=== PATIENT | male | born 1980 | race Caucasian/White ===

== ENCOUNTER 2023-10-09 13:01 | Outpatient (AMB) | payer OTHER, SELFPAY ==
--- NOTE | 2023-10-09 13:27 | MHC.PC.OV ---
Vital Signs 10/09/23 13:32 10/09/23 13:36 Height 5 ft 6 in Weight 276 lb BMI 44.5 BP 148/104 H 148/102 H Blood Pressure Location Rt brachial Rt brachial Position Sitting Sitting Respiration 16 Pulse 84 Pulse Source Pulse Oximeter Temp 98.4 F Temp Source Oral Pulse Oximetry (%) 97 Oxygen Delivery Method Room Air Intake Visit Reasons: Establish Care Intake Note: New patient visit Accompanied by: Spouse Allergies No Known Allergies Allergy (Verified 10/09/23 13:27) Medication List - Last Reconciled 10/09/23 by Linnette Hensley PA-C metformin 500 mg PO DAILY Tobacco use date assessed: 10/09/23 Dental Screening Dental Screen Date: 10/09/23 Did you have a dental visit in the last 12 months?: Yes Did you have a dental problem in the last 6 months where you did not have access to dental care?: No Was dental information given to patient?: Patient has dentist HPI Establish Care HPI Details Patient is a 43-year-old male who presents today for a follow up/to reestablish care. He is transferring from [facility] with wi. He has not been seen in a few months and has a significant past medical history of hypertension, hyperlipidemia, type 2 diabetes, peripheral neuropathy, GERD, fatty liver, BALDO on BiPAP, and headaches. He states that he has not had labs in months. He does not have any records with him today. Endo: He is on metformin 500 mg daily. If he increases the dose he gets diarrhea and bloating. He used to be on Trulicity but due to insurance issues was unable to get this refilled. His A1c today in the office is 7.6. He is overdue for an eye exam and tells me he will schedule this. He was diagnosed with diabetes 2 years ago. Does not check blood sugars. States that he is terrified of needles and does not think he would tolerate checking his glucose daily. His helps him with checking his blood sugars but she states that it takes a lot and he sometimes looks like he is going to faint. He was able to tolerate the Trulicity when he took this because he did not see the needle and his administered it for him. His peripheral neuropathy is stable. He states that it has not all the time that he has the numbness and tingling but it does seem relatively persistent. No infections. CV: Blood pressure today in the office is 148/102. He does not remember what his last cholesterol was but states that it was normal. Denies any chest shortness on breath or palpitations. He states years ago he was an antihypertensive but then stopped when he lost some weight. He has gained back the weight. He is following with weight management at [facility] and plans to proceed with a gastric sleeve. He states that he is follow up arranged this summer. PULM: Follows with Dr. Santo from [facility] sleep medicine for his BALDO. Compliant. [facility], [facility] Medical History (Updated 10/09/23 @ 14:24 by Linnette Hensley PA-C) Peripheral sensory neuropathy due to type 2 diabetes mellitus Needle phobia Uncontrolled type 2 diabetes mellitus with hyperglycemia Fatty liver GERD (gastroesophageal reflux disease) Headache Diabetes mellitus type 2, controlled, without complications Hypercholesteremia HTN (hypertension) Surgical History (Updated 10/09/23 @ 13:46 by Radha Velazco CMA) H/O removal of cyst History of tonsillectomy Family History (Updated 10/09/23 @ 13:53 by Radha Velazco CMA) Mother Afib Hypothyroidism Father Alcoholism Maternal Grandfather Colon cancer Other Substance use Social History (Updated 10/09/23 @ 13:29 by Radha Velazco CMA) Housing: Apartment Patient Tobacco Use Status: Never used Tobacco e-Cigarette/Vaping Use: Never Used Second Hand Smoke Exposure: Yes service: No Current occupational status: employed 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 1. Little interest or pleasure in doing things: not at all 2. Feeling down, depressed, or hopeless: not at all 3. Trouble falling or staying asleep, or sleeping too much: not at all 4. Feeling tired or having little energy: not at all 5. Poor appetite or overeating: not at all 6. Feeling bad about yourself - or that you are a failure or have let yourself or your family down: not at all 7. Trouble concentrating on things, such as reading the newspaper or watching television: not at all 8. Moving or speaking so slowly that other people could have noticed. Or the opposite - being so fidgety or restless that you have been moving around a lot more than usual: not at all 9. Thoughts that you would be better off or of hurting yourself in some way: not at all Total score: 0 Depression Screening Interpretation: Negative Depression Screening Done: Yes 24752 - PHQ-9 Billing: Yes Source: Developed by Drs. Syd Brown, Luh Matta, Swapnil Marsh and colleagues, with an educational ángel from [employer]. Thrive Questionnaire Date Thrive assessed: 10/09/23 I am a: Patient What is your living situation today?: I have a steady place to live Within the past 12 months, did the food you bought not last and you didn't have the money to get more?: Never true Within the past 12 months, did you worry whether your food would run out before you got money to buy more?: Never true Do you have trouble paying for medicines?: No Do you have trouble getting transportation to medical appointments?: No Do you have trouble paying your heating and electricity bill?: No Do you have trouble taking care of your child, family member or friend?: No Do you have trouble with day-to-day activities such as bathing, preparing meals, shopping, managing finances, etc.?: No Are you currently unemployed and looking for a job?: No Are you interested in more education?: No Please select the resources that you would like help with: None Currently or been in a relationship where the following occur: no concerns reported THRIVE Score: 0 AUDIT C Alcohol Use Questionnaire (AUDIT-C) 1. How often do you have a drink containing alcohol?: Never 3. How often do you have six or more drinks on one occasion?: Never Total Score: 0 Score Reviewed/Action Taken: Yes EDDIE-7 AMB Questionnaire EDDIE-7 Date EDDIE - 7 assessed: 10/09/23 Feeling nervous, anxious, or on edge: 0 = Not at all Not being able to stop or control worryin = Not at all Worrying too much about different things: 0 = Not at all Trouble relaxin = Not at all Being so restless that it is hard to sit still: 0 = Not at all Becoming easily annoyed or irritable: 0 = Not at all Feeling afraid as if something awful might happen: 0 = Not at all Total EDDIE-7 score (0-4 normal; 5-9 mild; 10-14 moderate; 15-21 severe): 0 Source: Developed by Drs. Syd Brown, Luh Matta, Swapnil Marsh and colleagues, with an educational ángel from [employer]. EDDIE-7 Assessment Billing EDDIE-7 Assessment Tool: EDDIE-7 Assessment 77186 Physical exam (Primary Care) Vital Signs: Last Vital Signs Temp 98.4 F 10/09/23 13:32 Pulse 84 10/09/23 13:32 Resp 16 10/09/23 13:32 BP 148/102 H 10/09/23 13:36 Pulse Ox 97 10/09/23 13:32 Oxygen Delivery Method Room Air 10/09/23 13:32 BMI result Body Mass Index 44.5 BMI Assessment/Plan discussion: High BMI High, discussed plan: lifestyle, weight reduction, dietary and physical activity Tobacco/Smoking Status: Tobacco use Status Tobacco use date assessed 10/09/23 10/09/23 13:31 Patient Tobacco Use Status Never used Tobacco 10/09/23 13:31 e-Cigarette/Vaping Use Never Used 10/09/23 13:31 Depression Screening Interpretation: Negative Currently or been in a relationship where the following occur: no concerns reported Const Orientation/consciousness: patient oriented x3 HENMT Ears: hearing grossly normal bilaterally Neck Thyroid: Thyroid normal Lymphatic: no lymphadenopathy noted Resp Auscultation: clear to auscultation bilaterally Cardio Rate: regular rate Rhythm: regular rhythm Heart sounds: S1 normal heart sound present and S2 normal heart sound present GI Inspection: Yes normal to inspection Palpation (GI): Soft to palpation and Other GI palpation findings present (nontender, no cva tenderness) Auscultation: normoactive bowel sounds Rectal Exam - Male: Yes deferred Skin General skin exam: no rashes or lesions noted Neuro General: patient oriented x3, gait normal and no focal motor deficits Results AMB Hemoglobin A1c AMB Hemoglobin A1c 7.6 % Last Edit by Radha Velazco CMA on 10/09/23 13:54 Assessment and Plan Assessment & Plan (1) Uncontrolled type 2 diabetes mellitus with hyperglycemia: Code(s): E11.65 - Type 2 diabetes mellitus with hyperglycemia Plan: In office A1c today is 7.6. Discussed with him that this is not at goal. I have referred him to a clinical systems educator. I we will try to get the [place] 3 approved for him. We did discuss that he does have the peripheral neuropathy and needle phobia that may be able to get this approved. I have started him on Ozempic. Discussed risks and benefits and adverse effects such as nausea and vomiting. He will return in a few weeks to have this adjusted. He will let me know if he develops any issues picking up this medication. Labs ordered today including CMP, microalbuminuria, TSH, CBC, B12. (2) Peripheral sensory neuropathy due to type 2 diabetes mellitus: Code(s): E11.42 - Type 2 diabetes mellitus with diabetic polyneuropathy Plan: As above. Discussed the importance of controlling blood sugars. (3) Needle phobia: Code(s): F40.298 - Other specified phobia Plan: See above. (4) HTN (hypertension): Code(s): I10 - Essential (primary) hypertension Qualifiers: Hypertension type: primary hypertension Qualified Code(s): I10 - Essential (primary) hypertension Plan: We will start on lisinopril. Discussed risks and benefits and adverse effects such as of angioedema, hyperkalemia. Discussed that he may develop a cough and to let me know. We will check labs a couple of weeks after starting this. He will return in 3-4 weeks to have his blood pressure rechecked. At that time we will also address diabetes. (5) Hypercholesteremia: Code(s): E78.00 - Pure hypercholesterolemia, unspecified Plan: Lipids ordered today. (6) Fatty liver: Code(s): K76.0 - Fatty (change of) liver, not elsewhere classified Plan: We will get records from [facility]. Does not recall the last time had ultrasound. LFTs ordered today. Plan Patient understands and agrees with the plan. Orders: Orders AMB Hemoglobin A1c Today E11.65 - Type 2 diabetes mellitus with hyperglycemia Lipid Panel Today E11.65 - Type 2 diabetes mellitus with hyperglycemia, E78.00 - Pure hypercholesterolemia, unspecified, I10 - Essential (primary) hypertension, K76.0 - Fatty (change of) liver, not elsewhere classified Comprehensive [place]. Panel Fast Today E11.65 - Type 2 diabetes mellitus with hyperglycemia, E78.00 - Pure hypercholesterolemia, unspecified, I10 - Essential (primary) hypertension, K76.0 - Fatty (change of) liver, not elsewhere classified Complete Blood Count Auto Diff Today E11.65 - Type 2 diabetes mellitus with hyperglycemia, E78.00 - Pure hypercholesterolemia, unspecified, I10 - Essential (primary) hypertension, K76.0 - Fatty (change of) liver, not elsewhere classified TSH reflex Free T4 Today E11.65 - Type 2 diabetes mellitus with hyperglycemia, E78.00 - Pure hypercholesterolemia, unspecified, I10 - Essential (primary) hypertension, K76.0 - Fatty (change of) liver, not elsewhere classified Vitamin B12 and Folate Today E11.65 - Type 2 diabetes mellitus with hyperglycemia, E78.00 - Pure hypercholesterolemia, unspecified, I10 - Essential (primary) hypertension, K76.0 - Fatty (change of) liver, not elsewhere classified Referrals Diabetes Education Referral E11.65 - Type 2 diabetes mellitus with hyperglycemia, E78.00 - Pure hypercholesterolemia, unspecified, I10 - Essential (primary) hypertension, K76.0 - Fatty (change of) liver, not elsewhere classified Medications: New semaglutide (Ozempic) for 4 weeks 0.25 mg (0.368 mL) subcut QWEEK 3 mL 2RF lisinopril 10 mg PO DAILY 90 tabs 1RF blood-glucose sensor (FreeStyle Kei 3 Sensor device) use daily As directed and replace q 14 days 1 ea 11RF E11.65 - Type 2 diabetes mellitus with hyperglycemia, F40.298 - Other specified phobia Coding Level of Care Code Est Pt Level 4 (93380) Complex EM visit Add On G2211 Diagnoses Uncontrolled type 2 diabetes mellitus with hyperglycemia E11.65 Peripheral sensory neuropathy due to type 2 diabetes mellitus E11.42 Needle phobia F40.298 Primary hypertension I10 Hypertension type: primary hypertension Hypercholesteremia E78.00 Fatty liver K76.0 Additional Codes EDDIE-7 Assessment Billing - EDDIE-7 Assessment Tool: EDDIE-7 Assessment 36211 ([id number])
[2023-10-09 13:32] VITALS: BP 148/104; PULSE 84; RESP 16; TEMP 36.9; O2SAT 97; BMI 44.5
[2023-10-09 13:36] VITALS: BP 148/102
== END 2023-10-09 14:18 | disposition home or self-care (01) ==
PROVIDERS: Visit Provider Physician Assistant
DX: E11.65 Type 2 diabetes mellitus with hyperglycemia (principal); E11.42 Type 2 diabetes mellitus with diabetic polyneuropathy; F40.298 Other specified phobia; I10 Essential (primary) hypertension; E78.00 Pure hypercholesterolemia, unspecified; K76.0 Fatty (change of) liver, not elsewhere classified
CPT/HCPCS: 83036; 99214; G2211

== ENCOUNTER 2023-10-24 14:08 | Outpatient (AMB) | payer OTHER, SELFPAY ==
--- NOTE | 2023-10-24 14:30 | A.OFFVIS_ITS ---
Intake Intake Visit Reasons: T2DM/CONFIRMED Motor Analyst Required: No Accompanied by: Spouse Allergies No Known Allergies Allergy (Verified 10/09/23 13:27) HPI Comprehensive Diabetes Asmnt Most Recent Diabetes Results: No Data to Display [facility] Medical History (Updated 10/09/23 @ 14:24 by Linnette Hensley PA-C) Peripheral sensory neuropathy due to type 2 diabetes mellitus Needle phobia Uncontrolled type 2 diabetes mellitus with hyperglycemia Fatty liver GERD (gastroesophageal reflux disease) Headache Diabetes mellitus type 2, controlled, without complications Hypercholesteremia HTN (hypertension) Surgical History (Updated 10/09/23 @ 13:46 by Radha Velazco CMA) H/O removal of cyst History of tonsillectomy Family History (Updated 10/09/23 @ 13:53 by Radha Velazco CMA) Mother Afib Hypothyroidism Father Alcoholism Maternal Grandfather Colon cancer Other Substance use Social History (Updated 10/09/23 @ 13:29 by Radha Velazco CMA) Housing: Apartment Patient Tobacco Use Status: Never used Tobacco e-Cigarette/Vaping Use: Never Used Second Hand Smoke Exposure: Yes service: No Current occupational status: employed 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 The patient met all learning objectives and was able to verbalize understanding and provide teach back of education topics discussed . The patient was provided with the opportunity to ask questions and all questions were answered. Patient Assessment Assess patient education level/literacy/barriers, patient could identify foods from carbohydrate list he currently eats. Patient reports being needle phobic so he does not test his glucose levels. Patient questions/concerns, patient diagnosed with type 2 diabetes approximately a year ago, last A1c in September 2023 7.6%. Patient is currently on Ozempic 0.25 mg weekly Metformin 500 mg daily, reports can not tolerate higher doses of metformin due to GI side effects What is Diabetes? Pathophysiology How the body produces and uses insulin Identify type of DM Risk factors Signs of Diabetes Brief overview of Diabetes Management Monitoring blood sugar Following a meal plan Regular exercise Maintaining a healthy weight Taking medication as needed Members of the care team (PCP, RN, MA, RD, CDE, organic preparation analyst) Blood glucose monitoring When/how often to test Target blood sugar ranges Patient is currently not checking blood sugars Patient does have current prescription for Kei 3, patient allowed Diabetes Education nurse to insert Kei 3 sensor in his arm at today's visit. Set up Kei 3 keenan on patient's cellphone Introduction to Nutrition Importance of healthy diet in managing DM Diet is personalized to individual preference Review patient?s regular diet/food preferences Who prepares meals/does food shopping/ Dining out?/ Barriers? How diet effects glucose Eating 3 balanced meals a day with small, healthy snacks between meals Review food groups Carbohydrates: What is a carbohydrate/Which food/food groups are considered carbohydrates Effect of carbohydrates on blood glucose Portion sizes Reading food labels Basic carb counting (if applicable per nursing assessment) Plate method Meal planning Recommendations: Follow plate method, consistent carbs and read nutritional labels. Smart Goal: Patient will identify foods in his diet that contain carbohydrates by his next visit Educational Materials: The patient was provided with the following written educational materials: Planning Healthy Meals Handout Patient Response to instructions: Comprehension of Instructions: Fair Readiness to make changes: Contemplation How confident they feel about making changes: Positive Portions of this note were created using voice recognition software, please excuse any words or phrases that may have been misinterpreted. Patient Instructions: Include regular daily activity. ADA recommends 30 minutes of exercise 5 days a week. Weight loss talk to PCP or Forming Mill Operator before starting new plan. Test blood sugar as directed; Fasting and 2hpp largest meal. Watch trends in results. Utilize results and to assess how food, physical activity and medications affect blood sugar results. Bring glucometer or CGM to next visit. Be knowledgeable about diabetes medication, its action, side effects, efficacy, toxicity, prescribed dosage, appropriate timing and frequency of administration, effect of missed and delayed doses and instructions for storage, travel and safety. Problem solving techniques to monitor hypo/hyperglycemia episodes and treatments. Reduce risk reduction behaviors, smoking cessation, regular eye, foot and dental examinations. Coding Level of Care Code Est Pt Level 1 (25096) Diagnoses Peripheral sensory neuropathy due to type 2 diabetes mellitus E11.42
== END 2023-10-24 15:11 | disposition home or self-care (01) ==
PROVIDERS: Visit Provider Registered Nurse Diabetes Educator
DX: E11.42 Type 2 diabetes mellitus with diabetic polyneuropathy (principal)

== ENCOUNTER → 2023-10-24 14:08 | Outpatient (BNVA) | payer OTHER, SELFPAY | PROVIDERS: Visit Provider Registered Nurse Diabetes Educator | DX: E11.42 Type 2 diabetes mellitus with diabetic polyneuropathy (principal) | CPT/HCPCS: 99211 ==

== ENCOUNTER 2023-11-10 07:51 | Outpatient (REF) | payer OTHER, SELFPAY ==
[2023-11-10 08:02] LABS: MANUAL DIFF FLAG NO
[2023-11-10 08:23] LABS: Basophils Absolute Auto 0.1 X10*3/uL (0.0-0.2); Basophils Percent Auto 0.5 % (0-2); Eosinophils Absolute Auto 0.2 X10*3/uL (0.0-0.4); Eosinophils Percent Auto 1.7 % (0-4); Hematocrit 49.7 % (42.0-52.0); Hemoglobin 16.4 g/dl (14.0-18.0); Imm Gran Abs Auto 0.03 X10*3/uL (0.00-0.03); Imm Gran Pct Auto 0.3 % (0.0-0.4); Lymphocytes Absolute Auto 3.2 X10*3/uL (1.2-4.9); Lymphocytes Percent Auto 34.6 % (20-40); Mean Corpuscular Hemoglobin 28.3 pg (27.0-33.0); Mean Corpuscular Volume 85.7 fL (80.0-98.0); Mean Platelet Volume 9.5 fL (9.4-12.4); Monocytes Absolute Auto 0.8 X10*3/uL (0.1-1.2); Monocytes Percent Auto 8.7 % (2-11); Neutrophils Percent Auto 54.2 % (45-73); Platelet Count 252 X10*3/uL (160-400); White Blood Count 9.2 X10*3/uL (4.8-10.8)
[2023-11-10 08:50] LABS: Microalbumin Urine < 5.0 mg/L
[2023-11-10 08:54] LABS: Alanine Aminotransferase 61 U/L (0-40); Albumin Level 4.1 g/dL (3.5-5.0); Alkaline Phosphatase 125 U/L (39-117); Anion Gap 12 (12-20); Aspartate Amino Transferase 40 U/L (5-37); Bilirubin Total 0.5 mg/dL (0.0-1.0); Blood Urea Nitrogen 11 mg/dL (9-16); Calcium 9.3 mg/dL (8.4-10.2); Carbon Dioxide 28 mmol/L (22-29); Chloride 105 mmol/L (96-108); Cholesterol 195 mg/dL (<200); Estimated Glomerular Filt Rate > 60; Glucose Fasting 118 mg/dL (60-99); HDL Cholesterol 37 mg/dL (>40); LDL Cholesterol Calculated 129 mg/dL (<100); Potassium 4.5 mmol/L (3.3-5.1); Sodium 140 mmol/L (135-145); Total Protein 7.5 g/dL (6.5-8.0); Triglycerides 148 mg/dL (<150)
[2023-11-10 09:10] LABS: TSH reflex Free T4 0.44 uIU/mL (0.32-4.0)
[2023-11-10 09:20] LABS: Vitamin B12 463 pg/mL (200-900)
== END 2023-11-10 07:52 | disposition home or self-care (01) ==
LOC: HO.LAB 07:51
PROVIDERS: PCP Physician Assistant; Visit Provider Physician Assistant
DX: E11.65 Type 2 diabetes mellitus with hyperglycemia (principal); I10 Essential (primary) hypertension; E78.00 Pure hypercholesterolemia, unspecified; K76.0 Fatty (change of) liver, not elsewhere classified
CPT/HCPCS: 36415; 80053; 80061; 82570; 82607; 82746; 84443; 85025

== ENCOUNTER 2023-11-30 08:57 | Outpatient (REF) | payer OTHER, SELFPAY ==
--- NOTE | ~2023-11-30 | US_ITS ---
EXAMINATION: US ABDOMEN COMPLETE CLINICAL INFORMATION: Steatosis of the liver. Elevated liver function tests. COMPARISON: None available. TECHNIQUE: Real-time imaging of the abdominal viscera. Severely limited study secondary to body habitus. Limited visualization due to bowel gas. FINDINGS: PANCREAS: Poorly visualized. ABDOMINAL AORTA: Poorly visualized. INFERIOR VENA CAVA: Limited visualization LIVER: Increased hepatic parenchymal heterogeneity and echogenicity could be associated with hepatocellular disease/hepatic steatosis and severely limits visualization. Hypoechoic areas within the right hepatic lobe adjacent to the gallbladder are difficult to characterize due to severely limited visualization, but may possibly represent areas of focal sparing within a fatty liver. GALLBLADDER: No gallstones. No gallbladder wall thickening. COMMON BILE DUCT: Normal in caliber measuring 0.4 cm in diameter. RIGHT KIDNEY: Tiny echogenic foci throughout the kidney may represent tiny nonobstructive calculi, vascular calcifications or artifact. No hydronephrosis. Limited visualization. The kidney measures 12.3 cm in maximum dimension. LEFT KIDNEY: Left renal 0.7 cm mid pole calculus. No hydronephrosis. Tiny echogenic foci throughout the kidney may represent tiny nonobstructive calculi, vascular calcifications or artifact. Limited visualization. The kidney measures 12.5 cm in maximum dimension. SPLEEN: Normal. The spleen measures 11.1 cm in maximum dimension. FREE FLUID: None. US/US abdomen complete IMPRESSION: 1. Increased hepatic parenchymal heterogeneity and echogenicity could be associated with hepatocellular disease/hepatic steatosis and severely limits visualization. Hypoechoic areas within the right hepatic lobe adjacent to the gallbladder are difficult to characterize due to severely limited visualization, but may possibly represent areas of focal sparing within a fatty liver. Correlation with liver function tests and clinical exam recommended to determine further management. 2. Left renal 0.7 cm mid pole calculus. No hydronephrosis. Tiny echogenic foci throughout the bilateral kidneys may represent tiny nonobstructive calculi, vascular calcifications or artifact. 3. Severely limited visualization due to bowel gas and body habitus.
== END 2023-11-30 08:58 | disposition home or self-care (01) ==
LOC: HO.US 08:57
PROVIDERS: PCP Physician Assistant; Visit Provider Physician Assistant
DX: K76.0 Fatty (change of) liver, not elsewhere classified (principal); R79.89 Other specified abnormal findings of blood chemistry
CPT/HCPCS: 76700

== ENCOUNTER 2024-04-03 09:06 | Outpatient (AMB) | payer OTHER, SELFPAY ==
--- NOTE | 2024-04-03 09:15 | MHC.PC.OV ---
Vital Signs 04/03/24 09:19 Height 5 ft 6 in Weight 248 lb BMI 40.0 BP 108/76 Blood Pressure Location Rt brachial Position Sitting Pulse 109 H Pulse Source Pulse Oximeter Pulse Oximetry (%) 98 Oxygen Delivery Method Room Air Intake Visit Reasons: Sleeve Surgery Follow Up Intake Note: Follow up after gastric sleeve surgery. Program Evaluation Consultant Required: No Allergies No Known Allergies Allergy (Verified 04/03/24 09:15) Medication List - Last Reconciled 04/03/24 by Linnette Hensley PA-C acetaminophen 500 mg PO Q6H PRN blood-glucose sensor (FreeStyle Kei 3 Sensor device) use daily As directed and replace q 14 days lisinopril 10 mg PO DAILY multivitamin 1 tab PO DAILY pantoprazole 40 mg PO DAILY semaglutide (Ozempic) 0.5 mg (0.736 mL) subcut QWEEK simethicone (Gas Relief (simethicone)) 8-0 ursodiol 600 mg PO DAILY Tobacco use date assessed: 10/09/23 Dental Screening Dental Screen Date: 10/09/23 HPI Sleeve Surgery Follow Up HPI Details pernell is a 43-year-old male who presents today for a follow up. He recently had gastric sleeve surgery. He has not been seen in a few months and has a significant past medical history of hypertension, hyperlipidemia, type 2 diabetes, peripheral neuropathy, GERD, fatty liver, BALDO on BiPAP, and headaches. General: Currently down 30 lb since his gastric sleeve 2 weeks ago. Endo: His A1c today in the office is 6.2. Currently off of metformin as he had GI upset. His surgeon told him to hold the Ozempic at this point until he is re-evaluated. He will be re-evaluated next week. GI: He has fatty liver. Does not follow with GI. He is working on lifestyle modifications. Uro: Was supposed to follow with urology for stones but never did because he owed money and they wouldn't let him make an appointment. He would like a referral somewhere else. CV: Blood pressure today in the office is 108/76. PULM: Follows with Dr. Santo from [facility] sleep medicine for his BALDO. Compliant. [facility] Medical History (Updated 04/03/24 @ 09:51 by Linnette Hensley PA-C) Left renal stone Peripheral sensory neuropathy due to type 2 diabetes mellitus Needle phobia Uncontrolled type 2 diabetes mellitus with hyperglycemia Fatty liver GERD (gastroesophageal reflux disease) Headache Diabetes mellitus type 2, controlled, without complications Hypercholesteremia HTN (hypertension) Surgical History (Updated 10/09/23 @ 13:46 by Radha Velazco CMA) H/O removal of cyst History of tonsillectomy Family History (Updated 10/09/23 @ 13:53 by Radha Velazco CMA) Mother Afib Hypothyroidism Father Alcoholism Maternal Grandfather Colon cancer Other Substance use Social History (Updated 10/09/23 @ 13:29 by Radha Velazco CMA) Housing: Apartment Patient Tobacco Use Status: Never used Tobacco e-Cigarette/Vaping Use: Never Used Second Hand Smoke Exposure: Yes service: No Current occupational status: employed 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 1. Little interest or pleasure in doing things: not at all 2. Feeling down, depressed, or hopeless: not at all 3. Trouble falling or staying asleep, or sleeping too much: several days 4. Feeling tired or having little energy: several days 5. Poor appetite or overeating: not at all 6. Feeling bad about yourself - or that you are a failure or have let yourself or your family down: not at all 7. Trouble concentrating on things, such as reading the newspaper or watching television: several days 8. Moving or speaking so slowly that other people could have noticed. Or the opposite - being so fidgety or restless that you have been moving around a lot more than usual: not at all 9. Thoughts that you would be better off or of hurting yourself in some way: not at all Total score: 3 Source: Developed by Drs. Syd Brown, Luh Matta, Swapnil Marsh and colleagues, with an educational ángel from [employer]. Thrive Questionnaire Date Thrive assessed: 10/09/23 I am a: Patient What is your living situation today?: I have a steady place to live Within the past 12 months, did the food you bought not last and you didn't have the money to get more?: Never true Within the past 12 months, did you worry whether your food would run out before you got money to buy more?: Never true Do you have trouble paying for medicines?: No Do you have trouble getting transportation to medical appointments?: No Do you have trouble paying your heating and electricity bill?: No Do you have trouble taking care of your child, family member or friend?: No Do you have trouble with day-to-day activities such as bathing, preparing meals, shopping, managing finances, etc.?: No Are you currently unemployed and looking for a job?: No Are you interested in more education?: No Please select the resources that you would like help with: None Currently or been in a relationship where the following occur: No concerns reported THRIVE Score: 0 AUDIT C Alcohol Use Questionnaire (AUDIT-C) 1. How often do you have a drink containing alcohol?: Never Total Score: 0 EDDIE-7 AMB Questionnaire EDDIE-7 Date EDDIE - 7 assessed: 10/09/23 Feeling nervous, anxious, or on edge: 0 = Not at all Not being able to stop or control worryin = Not at all Worrying too much about different things: 0 = Not at all Trouble relaxin = Not at all Being so restless that it is hard to sit still: 0 = Not at all Becoming easily annoyed or irritable: 1 = Several days Feeling afraid as if something awful might happen: 0 = Not at all Total EDDIE-7 score (0-4 normal; 5-9 mild; 10-14 moderate; 15-21 severe): 1 Source: Developed by Drs. Syd Brown, Luh Matta, Swapnil Marsh and colleagues, with an educational ángel from [employer]. Physical exam (Primary Care) Vital Signs: Last Vital Signs Pulse 109 H 04/03/24 09:19 BP 108/76 04/03/24 09:19 Pulse Ox 98 04/03/24 09:19 Oxygen Delivery Method Room Air 04/03/24 09:19 BMI result Body Mass Index 40.0 Tobacco/Smoking Status: Tobacco use Status Tobacco use date assessed 10/09/23 04/03/24 09:21 Patient Tobacco Use Status Never used Tobacco 04/03/24 09:21 e-Cigarette/Vaping Use Never Used 04/03/24 09:21 PHQ-9: PHQ-9 Score PHQ-9: Total score 3 04/03/24 09:36 Thrive Assessment: Date of Thrive Assessment Date Thrive assessed 10/09/23 04/03/24 09:21 Currently or been in a relationship where the following occur: No concerns reported Const Orientation/consciousness: patient oriented x3 HENMT Ears: hearing grossly normal bilaterally Neck Thyroid: Thyroid normal Lymphatic: no lymphadenopathy noted Resp Auscultation: clear to auscultation bilaterally Cardio Rate: regular rate Rhythm: regular rhythm Heart sounds: S1 normal heart sound present and S2 normal heart sound present GI Inspection: Yes normal to inspection Palpation (GI): Soft to palpation and Other GI palpation findings present (nontender, no cva tenderness) Auscultation: normoactive bowel sounds Rectal Exam - Male: Yes deferred Neuro General: patient oriented x3, gait normal and no focal motor deficits Coding Level of Care Code Est Pt Level 4 (22572) Complex EM visit Add On G2211 Diagnoses Left renal stone N20.0 Primary hypertension I10 Hypertension type: primary hypertension Hypercholesteremia E78.00 Fatty liver K76.0 Controlled type 2 diabetes mellitus E11.9 Assessment & Plan Assessment & Plan (1) Left renal stone: Code(s): N20.0 - Calculus of kidney Category: Medical Plan: referral to urology (2) HTN (hypertension): Code(s): I10 - Essential (primary) hypertension Category: Medical Qualifiers: Hypertension type: primary hypertension Qualified Code(s): I10 - Essential (primary) hypertension Plan: wnl continue current plan (3) Hypercholesteremia: Code(s): E78.00 - Pure hypercholesterolemia, unspecified Category: Medical Plan: lipids and lfts ordered (4) Fatty liver: Code(s): K76.0 - Fatty (change of) liver, not elsewhere classified Category: Medical Plan: as above (5) Controlled type 2 diabetes mellitus: Code(s): E11.9 - Type 2 diabetes mellitus without complications Category: Medical Plan: continue lifestyle modifications Orders: Orders TSH reflex Free T4 Today E11.65 - Type 2 diabetes mellitus with hyperglycemia, E11.9 - Type 2 diabetes mellitus without complications, E78.00 - Pure hypercholesterolemia, unspecified, I10 - Essential (primary) hypertension, K76.0 - Fatty (change of) liver, not elsewhere classified Microalbumin, Random (w Creat) Today E11.65 - Type 2 diabetes mellitus with hyperglycemia, E11.9 - Type 2 diabetes mellitus without complications, E78.00 - Pure hypercholesterolemia, unspecified, I10 - Essential (primary) hypertension, K76.0 - Fatty (change of) liver, not elsewhere classified AMB Hemoglobin A1c Today E11.42 - Type 2 diabetes mellitus with diabetic polyneuropathy Complete Blood Count Auto Diff Today E11.65 - Type 2 diabetes mellitus with hyperglycemia, E11.9 - Type 2 diabetes mellitus without complications, E78.00 - Pure hypercholesterolemia, unspecified, I10 - Essential (primary) hypertension, K76.0 - Fatty (change of) liver, not elsewhere classified Comprehensive Met. Panel Today E11.65 - Type 2 diabetes mellitus with hyperglycemia, E11.9 - Type 2 diabetes mellitus without complications, E78.00 - Pure hypercholesterolemia, unspecified, I10 - Essential (primary) hypertension, K76.0 - Fatty (change of) liver, not elsewhere classified Lipid Panel Today E11.65 - Type 2 diabetes mellitus with hyperglycemia, E11.9 - Type 2 diabetes mellitus without complications, E78.00 - Pure hypercholesterolemia, unspecified, I10 - Essential (primary) hypertension, K76.0 - Fatty (change of) liver, not elsewhere classified B Type Natriuretic Peptide Today E11.9 - Type 2 diabetes mellitus without complications, E78.00 - Pure hypercholesterolemia, unspecified, I10 - Essential (primary) hypertension Referrals Urology Referral N20.0 - Calculus of kidney
[2024-04-03 09:19] VITALS: BP 108/76; PULSE 109; O2SAT 98; BMI 40.0
== END 2024-04-03 10:04 | disposition home or self-care (01) ==
LOC: HO.HMCFM 09:07
PROVIDERS: PCP Physician Assistant; Visit Provider Physician Assistant
DX: E11.9 Type 2 diabetes mellitus without complications (principal); N20.0 Calculus of kidney; I10 Essential (primary) hypertension; E78.00 Pure hypercholesterolemia, unspecified; K76.0 Fatty (change of) liver, not elsewhere classified

== ENCOUNTER 2024-06-04 14:25 | Outpatient (AMB) | payer OTHER, SELFPAY ==
--- NOTE | 2024-06-04 14:38 | MHC.OFFVIS ---
Intake Visit Reasons: kidney stones Intake Note: New Patient presents for initial visit for kidney stones Urology Medications: none Blood Thinner: none PVR: 19ml's Sweetbread Trimmer Required: No Accompanied by: Self / Same As Patient Allergies No Known Allergies Allergy (Verified 06/04/24 15:24) Medication List - Last Reconciled 06/04/24 by NELY Raman blood-glucose sensor (FreeStyle Kei 3 Sensor device) use daily As directed and replace q 14 days lisinopril 10 mg PO DAILY multivitamin 1 tab PO DAILY pantoprazole 40 mg PO DAILY semaglutide (Ozempic) 0.5 mg (0.736 mL) subcut QWEEK simethicone (Gas Relief (simethicone)) 8-0 ursodiol 600 mg PO DAILY HPI Comments Details: Kimo is a very pleasant 44-year-old male patient of Dr. Hensley who was accompanied by his significant other at today's office visit. He has a past medical history of nephrolithiasis, type 2 diabetes with peripheral neuropathy, needle phobia, GERD, fatty liver, headaches, hypercholesteremia, and hypertension. He presents to the office today as a new patient for nephrolithiasis. In discussion with the patient today he reports a longstanding history of nephrolithiasis in the past however never requiring surgical intervention. He reports recently having gastric sleeve surgery and believes shortly after he passed a kidney stone. In review of patient's chart it appears abdominal ultrasound 12/18 bilateral kidneys with no hydronephrosis. Right kidney tiny nonobstructive calculi noted. Left kidney with 7 mm mid pole calculus and tiny echogenic foci throughout the kidney that can represent nonobstructive calculi. He does discuss feeling after gastric sleeve procedure he feels his bladder is different. He reports prior to surgical procedure he felt when he needed to use the bathroom. He reports feeling previously he felt full upon wakening and had to use the bathroom to void almost immediately and feels this is different now. In office urinalysis results reviewed with the patient today. PVR 19 mL. We discussed obtaining retroperitoneal ultrasound for further assessment evaluation. He otherwise denies incontinence, nocturia, hematuria, dysuria, foul smelling urine, changes to urinary stream, flank pain, fever, and or chills. He is happy with his current voiding parameters. 10/18 A1c 7.6 PFSH Medical History Left renal stone Peripheral sensory neuropathy due to type 2 diabetes mellitus Needle phobia Uncontrolled type 2 diabetes mellitus with hyperglycemia Fatty liver GERD (gastroesophageal reflux disease) Headache Diabetes mellitus type 2, controlled, without complications Hypercholesteremia HTN (hypertension) Surgical History H/O removal of cyst History of tonsillectomy Family History Mother Afib Hypothyroidism Father Alcoholism Maternal Grandfather Colon cancer Other Substance use Social History Housing: Apartment Patient Tobacco Use Status: Never used Tobacco e-Cigarette/Vaping Use: Never Used Second Hand Smoke Exposure: Yes service: No Current occupational status: employed 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 Current occupational exposures/hazards: No Cognitive needs: No Hearing needs: No Vision needs: No Review of Systems Const All systems reviewed & are unremarkable except as noted in HPI and below Physical Exam Const General: cooperative, healthy appearing, comfortable, no acute distress, well developed, alert and awake Nutritional Appearance: overweight Orientation/consciousness: patient oriented x3 Limitations: no limitations HEENT Head: Yes normal to inspection, Yes normocephalic and Yes atraumatic Ears: hearing grossly normal bilaterally Eyes General: appearance normal, both eyes and all related structures Neck Neck: Yes normal visual inspection and Yes trachea midline Chest Chest palpation & inspection: normal inspection of the chest Resp Effort & Inspection: normal respiratory effort and able to speak in complete sentences Cardio Rate: regular rate GI Inspection: Yes normal to inspection General: Yes no CVA tenderness Back/Spine/Pelvis Back: no CVA tenderness Skin General skin exam: no rashes or lesions noted Neuro General: patient oriented x3 Extrem General: Yes normal to inspection Psych Appearance: grossly normal and well kempt Mental Status: mental status grossly normal Speech and movement: Normal speech and movement present and Clear speech present Affect: normal affect Attitude: cooperative Thought process: Normal thought process present Thought content: Normal thought content present Insight: Fair insight present (Psych) Judgement: Fair judgement present (Psych) Office Procedures Post Void Residual Post Residual Void Post Void Residual (PVR): 19 [id number] Void Residual by ultrasound Results AMB Urinalysis, Automated UA Leukoctes 15 Torrie/uL Last Edit by Sokratiolga Marte on 06/04/24 15:03 UA Nitrite Last Edit by Sokratiolga Marte on 06/04/24 15:03 UA Urobilinogen 1 mg/dL Last Edit by Sokratie Rosanna on 06/04/24 15:03 UA Protein 30 mg/dL Last Edit by Sokratie SageFirevaughn on 06/04/24 15:03 UA pH 6.0 Last Edit by Sokratie SageFirevaughn on 06/04/24 15:03 UA Blood 0 Saul/uL Last Edit by SocialDeckvaughn on 06/04/24 15:03 UA Specific Montgomery 1.025 Last Edit by SocialDeckvaughn on 06/04/24 15:03 UA Ketone Last Edit by SocialDeckvaughn on 06/04/24 15:03 UA Bilirubin 1 mg/dL Last Edit by SocialDeckvaughn on 06/04/24 15:03 UA Glucose 0 mg/dL Last Edit by SocialDeckvaughn on 06/04/24 15:03 Results Reviewed Results Reviewed: Laboratory Last Values Urine pH (Auto) 6.0 06/04/24 15:02 Specific Montgomery (Auto) 1.025 06/04/24 15:02 Urine Protein (Auto) 30 mg/dL 06/04/24 15:02 Glucose (UA)(Auto) 0 mg/dL 06/04/24 15:02 Urine Blood (Auto) 0 Saul/uL 06/04/24 15:02 Urine Bilirubin (Auto) 1 mg/dL 06/04/24 15:02 Urine Urobilinogen (Auto) 1 mg/dL 06/04/24 15:02 Leukocyte Esterase (Auto) 15 Torrie/uL 06/04/24 15:02 Date of Service: 11/30/23 Procedure(s): US abdomen complete EXAMINATION: US ABDOMEN COMPLETE FINDINGS: PANCREAS: Poorly visualized. ABDOMINAL AORTA: Poorly visualized. INFERIOR VENA CAVA: Limited visualization LIVER: Increased hepatic parenchymal heterogeneity and echogenicity could be associated with hepatocellular disease/hepatic steatosis and severely limits visualization. Hypoechoic areas within the right hepatic lobe adjacent to the gallbladder are difficult to characterize due to severely limited visualization, but may possibly represent areas of focal sparing within a fatty liver. GALLBLADDER: No gallstones. No gallbladder wall thickening. COMMON BILE DUCT: Normal in caliber measuring 0.4 cm in diameter. RIGHT KIDNEY: Tiny echogenic foci throughout the kidney may represent tiny nonobstructive calculi, vascular calcifications or artifact. No hydronephrosis. Limited visualization. The kidney measures 12.3 cm in maximum dimension. LEFT KIDNEY: Left renal 0.7 cm mid pole calculus. No hydronephrosis. Tiny echogenic foci throughout the kidney may represent tiny nonobstructive calculi, vascular calcifications or artifact. Limited visualization. The kidney measures 12.5 cm in maximum dimension. SPLEEN: Normal. The spleen measures 11.1 cm in maximum dimension. FREE FLUID: None. IMPRESSION: 1. Increased hepatic parenchymal heterogeneity and echogenicity could be associated with hepatocellular disease/hepatic steatosis and severely limits visualization. Hypoechoic areas within the right hepatic lobe adjacent to the gallbladder are difficult to characterize due to severely limited visualization, but may possibly represent areas of focal sparing within a fatty liver. Correlation with liver function tests and clinical exam recommended to determine further management. 2. Left renal 0.7 cm mid pole calculus. No hydronephrosis. Tiny echogenic foci throughout the bilateral kidneys may represent tiny nonobstructive calculi, vascular calcifications or artifact. 3. Severely limited visualization due to bowel gas and body habitus. Assessment & Plan Assessment & Plan (1) Nephrolithiasis: Code(s): N20.0 - Calculus of kidney Category: Medical Plan In office urinalysis results reviewed with the patient today; as noted above. PVR 19 mL. Will obtain retroperitoneal ultrasound for further assessment evaluation. We discussed importance of adequate hydration relation to nephrolithiasis as well as overall health and well-being. We discussed importance of management and diabetes for improvement in overall health and well-being. Discussed adding 1 oz of lemon juice to water daily. We discussed near future metabolic workup with [facility]. Follow-up in 1-3 months with imaging to be completed prior; or sooner with any issues, concerns, and or questions. Orders: Orders AMB Urinalysis Automated Today Z13.9 - Encounter for screening, unspecified AMB Post Void Residual by ultrasound Today Z13.9 - Encounter for screening, unspecified US retroperitoneal comp Today N20.0 - Calculus of kidney Patient Instructions: The patient had an opportunity to ask questions regarding the treatment plan. All questions were answered. Physical exam, labs, and imaging were discussed and reviewed in detail. As well as risks, benefits, and discussion of treatment choices. No major barriers to understanding were identified. The patient expressed understanding and agreement with the above treatment plan. The patient was made aware they should contact our office by phone for worsening of their current condition, the appearance of new symptoms, or with any questions or concerns. Compliance is encouraged with any medications and follow up testing that is ordered. It is a privilege to be allowed the opportunity to participate in? your urological care.? Again, if you have any questions or concerns If you have any questions or concerns please do not hesitate to contact me. The office is [phone]. This note is constructed using voice recognition software. While every effort has been made to ensure accuracy leak hunter errors may have been included. Yours sincerely, LUDWIG Raman-JACINTO Coding Level of Care Code New Pt Level 3 (72889) Diagnoses Nephrolithiasis N20.0 CPT Codes Post Residual Void - PVR CPT Code: 67907-[id number] Void Residual by ultrasound ([id number])
== END 2024-06-04 15:15 | disposition home or self-care (01) ==
PROVIDERS: PCP Physician Assistant; Visit Provider Nurse Practitioner Family
DX: N20.0 Calculus of kidney (principal); Z13.9 Encounter for screening, unspecified
CPT/HCPCS: 99203

== ENCOUNTER → 2024-06-04 14:25 | Outpatient (BNVA) | payer OTHER, SELFPAY | PROVIDERS: PCP Physician Assistant; Visit Provider Nurse Practitioner Family | DX: N20.0 Calculus of kidney (principal) | CPT/HCPCS: 51798; 81003 ==

== ENCOUNTER 2024-07-15 07:49 | Outpatient (REF) | payer OTHER, SELFPAY ==
--- OUTSIDE RECORDS SUMMARY | 2024-07-15 07:51 | XMS_ITS | Clinical Summary ---
Author Organization 175 [facility] Address [address] [place] [address] Phone Care Team Providers Care Stock Hanger Name Role Phone Linnette Hensley Primary Care Provider [phone] Allergies No known active allergies Medications cyclobenzaprine (FLEXERIL) 10 mg tablet Take 1 Tablet by mouth daily. 3 Active gabapentin (NEURONTIN) 300 mg capsule Take 1 Capsule by mouth daily. 3 Active metaxalone (SKELAXIN) 800 mg tablet TAKE 1 TABLET BY MOUTH 3 TIMES A DAY FOR 7 DAYS 3 Active ondansetron (ZOFRAN) 4 mg tablet Take 1-2 Tabs by mouth every 8 hours as needed for Nausea. 5 Active SUMAtriptan (IMITREX) 50 mg tablet TAKE 1 TABLET NEEDED FOR HEADACHE MAY REPEAT DOSE ONCE AFTER 2 HOURS, IF NEEDED. 4 Active traMADoL (ULTRAM) 50 mg tablet TAKE 1 TABLET BY MOUTH EVERY 12 HOURS NEEDED FOR PAIN INS =7D 3 Active FREESTYLE LANCETS MISC USE TO CHECK BLOOD GLUCOSE DAILY DIRECTED FOR TYPE 2 DIABETES MELLITUS 3 Active ibuprofen (ADVIL,MOTRIN) 600 mg tablet Take 1 Tab by mouth every 6 hours as needed for Pain. 4 Active UNABLE TO FIND CPAP HISTORICAL Active pantoprazole (PROTONIX) 40 mg EC tablet TAKE 1 TABLET BY MOUTH EVERY DAY 30 tablet 2 5 Active Active Problems Problem Noted Date Diagnosed Date Hematuria 01/25/2015 HTN (hypertension) 06/13/2012 Elevated LFTs 02/25/2010 Migraine 01/25/2010 Immunizations Name Administration Dates Next Due Tdap Tetanus diptheria acell ular pertussis (Boostrix; Adacel) 7yo and older 12/11/2016,10/23/2013 Surgical History Surgery Date Site/Laterality Comments TONSILLECTOMY PROCEDURE: HISTORICAL TONSILLECTOMY; COMMENT: 1999 Medical History Medical History Date Comments Sleep apnea DX:Sleep apnea; COMMENT: mild Family History Medical History Relation Name Comments Breast cancer Neg Hx Relation Name Status Comments Daughter Alive Father Alive not known Maternal Grandfather colon c ancer Maternal Grandmother cirrhos is, hep C, Dm Mother Alive Sister Alive Son 1 Alive Son 2 Alive Son 3 Alive Son 4 Alive Social History Tobacco Use Types Packs/Day Years Used Date Smoking Tobacco: Never Tobacco Cessation:Counseling Given: Not Answered Alcohol Use Standard Drinks/Week Comments Yes 0 (1 standard drink = 0.6 oz pur e alcohol) Sex and Gender Information Value Date Recorded Sex Assigned at Not on file Legal Sex Male 10:25 AM EST Gender Identity Not on file Sexual Orientation Not on file Obstetrics History Last Filed Vital Signs Vital Sign Reading Time Taken Comments Blood Pressure 109/76 04/08/2024 11:48 AM EST Pulse 90 04/08/2024 11:48 AM EST Temperature - - Respiratory Rate - - Oxygen Saturation - - Inhaled Oxygen Concentration - - Weight 112 kg (246 lb) 04/08/2024 11:48 AM EST Height 167.6 cm (5' 6 ) 04/08/2024 11:48 AM EST Body Mass Index 39.71 04/08/2024 11:48 AM EST Plan of Treatment Health Maintenance Due Date Last Done Comments Hepatitis B Vaccines (1 of 3 - 19+ 3-dose series) 02/24/2000 Depression Screening 04/25/2022 HIV Screening 04/25/2022 Social Influencers of Health Screening 04/25/2022 COVID-19 Vaccine ( - 2023-2 5 season) 2024 Influenza Vaccine (#1) 2024 Hypertension/CHF/CAD Annual BMP Blood Test 08/13/2024 08/14/2023 DTaP,Tdap,and Td Vaccines (3 - Td or Tdap) 12/11/2026 12/11/2016, 10/23/2013 Cholesterol Screening (Lipid Panel) 08/13/2028 08/14/2023 Hepatitis C Screening Completed 10/23/2013 HIB Vaccines Aged Out No longer eligi ble based on patient's age to complete this topic HPV Vaccines Aged Out No longer eligi ble based on patient's age to complete this topic Hepatitis A Vaccines Aged Out No long er eligible based on patient's age to complete this topic IPV Vaccines Aged Out No longer eligi ble based on patient's age to complete this topic MMR Vaccines Aged Out No longer eligi ble based on patient's age to complete this topic Meningococcal ACWY Vaccine Aged Out N o longer eligible based on patient's age to complete this topic Meningococcal B Vacine Aged Out No lo nger eligible based on patient's age to complete this topic Pneumococcal Vaccine: Pediatrics (0 to 5 Years) and At-Risk Patients (6 to 64 Years) Aged Out No longer eligible b ased on patient's age to complete this topic RSV Immunization Patients Under 20 months Aged Out No longer eligible b ased on patient's age to complete this topic Varicella Vaccines Aged Out No longer eligible based on patient's age to complete this topic Procedures Procedure Name Priority Date/Time Associated Diagnosis Comments ANNUAL BMP BLOOD TEST Routine 08/14/2023 LIPID PANEL Routine 08/14/2023 HEPATITIS C SCREENING Routine 10/23/2013 from Last 3 Months or Most Recently Relevant to Health Maintenance Results * Annual BMP Blood Test (08/14/2023) Annual BMP Blood Test Abstracted us Historical Provider HEALTH MAINTENANCE Final Result * (ABNORMAL) Lipid panel (08/14/2023) LDL/HDL Ratio 6(A) 0 - 4 Triglycerides 380(A) 0 - 150 mg/dL Cholesterol 220(A) 0 - 200 mg/dL HDL 40 >=40 mg/dL LDL Cholesterol 104(A) 0 - 100 mg/dL Blood Venous blood specimen / Unknown Historical Provider LAB BLOOD ORDERABLES Lorena l Result * Hepatitis C Screening (10/23/2013) Hepatitis C Screening Abstracted Historical Provider HEALTH MAINTENANCE Final Result from Last 3 Months or Most Recently Relevant to Health Maintenance Insurance YESI SAWYER [id number] [facility] Care Teams Stock Hanger Relationship Specialty Start Date End Date Linnette Hensley PA Formerly named [facility] [place] [address] PCP - General 11/08/22
[2024-07-15 08:14] LABS: MANUAL DIFF FLAG NO
[2024-07-15 08:48] LABS: Basophils Percent Auto 0.5 % (0-2); Eosinophils Absolute Auto 0.1 X10*3/uL (0.0-0.4); Eosinophils Percent Auto 1.5 % (0-4); Hematocrit 48.5 % (42.0-52.0); Hemoglobin 15.8 g/dl (14.0-18.0); Imm Gran Abs Auto 0.01 X10*3/uL (0.00-0.03); Imm Gran Pct Auto 0.2 % (0.0-0.4); Lymphocytes Absolute Auto 2.4 X10*3/uL (1.2-4.9); Lymphocytes Percent Auto 37.5 % (20-40); Mean Corpuscular HGB Conc 32.6 g/dl (31.0-36.0); Mean Corpuscular Hemoglobin 28.7 pg (27.0-33.0); Mean Corpuscular Volume 88.2 fL (80.0-98.0); Mean Platelet Volume 10.1 fL (9.4-12.4); Monocytes Absolute Auto 0.6 X10*3/uL (0.1-1.2); Monocytes Percent Auto 9.2 % (2-11); Neutrophils Absolute Auto 3.3 x10*3/uL (2.0-8.3); Neutrophils Percent Auto 51.1 % (45-73); Platelet Count 268 X10*3/uL (160-400); White Blood Count 6.5 X10*3/uL (4.8-10.8)
[2024-07-15 09:21] LABS: B Type Natriuretic Peptide 17 pg/mL (<100)
[2024-07-15 09:27] LABS: Creatinine Urine 419.44 mg/dL; Microalbum/Creatinine Ratio Ur 5.9 ug/mg cr (<30)
[2024-07-15 09:34] LABS: Alanine Aminotransferase 21 U/L (0-40); Albumin Level 4.2 g/dL (3.5-5.0); Alkaline Phosphatase 96 U/L (39-117); Anion Gap 15 (12-20); Aspartate Amino Transferase 25 U/L (5-37); Bilirubin Direct 0.3 mg/dL (0.0-0.5); Bilirubin Total 0.8 mg/dL (0.0-1.0); Blood Urea Nitrogen 8 mg/dL (9-16); Calcium 9.5 mg/dL (8.4-10.2); Carbon Dioxide 26 mmol/L (22-29); Chloride 107 mmol/L (96-108); Cholesterol 212 mg/dL (<200); Estimated Glomerular Filt Rate > 60; Glucose Random 83 mg/dL (60-115); HDL Cholesterol 45 mg/dL (>40); LDL Cholesterol Calculated 146 mg/dL (<100); Sodium 144 mmol/L (135-145); Total Protein 7.4 g/dL (6.5-8.0); Triglycerides 106 mg/dL (<150)
[2024-07-15 09:40] LABS: Hepatitis A Antibody IgG Nonreactive (Nonreactive); ~Hepatitis A Antibody IgG 0.37 S/CO (0.00-0.99)
[2024-07-15 09:48] LABS: HBS Num1 184.29 mIU/mL (0-7.99); ~HepC Num1 0.07 S/CO (0.00-0.79); ~Hepatitis B Surface Antibody REACTIVE (Nonreactive); ~Hepatitis C Antibody Nonreactive (Nonreactive)
[2024-07-15 09:52] LABS: TSH reflex Free T4 0.41 uIU/mL (0.32-4.0)
[2024-07-15 11:39] LABS: Gamma Glutamyl Transpeptidase 16 U/L (11-51)
== END 2024-07-15 07:50 | disposition home or self-care (01) ==
LOC: HO.LAB 07:49
PROVIDERS: PCP Physician Assistant; Visit Provider Physician Assistant
DX: E11.65 Type 2 diabetes mellitus with hyperglycemia (principal); I10 Essential (primary) hypertension; E78.00 Pure hypercholesterolemia, unspecified; K76.0 Fatty (change of) liver, not elsewhere classified; R94.5 Abnormal results of liver function studies; R79.89 Other specified abnormal findings of blood chemistry
CPT/HCPCS: 36415; 80053; 80061; 82043; 82248; 82570; 82977; 83880; 84443; 85025; 86706; 86708; 86803

== ENCOUNTER 2024-07-15 14:39 | Outpatient (REF) | payer OTHER, SELFPAY ==
--- NOTE | ~2024-07-15 | US_ITS ---
CLINICAL HISTORY: N20.0 - Calculus of kidney US Renal Comparison: None Findings: Right kidney normal size and echotexture, 11.6 cm length. Left kidney normal size and echotexture, 11.8 cm length. No renal calculus. 5 mm peripelvic cyst within the left kidney.. No hydronephrosis of either kidney. Normal color Doppler IMPRESSION: Small left kidney cyst. Otherwise unremarkable. This document has been electronically signed by: Sofia Pierre MD on 07/16/2024 15:39:56
--- OUTSIDE RECORDS SUMMARY | 2024-07-15 15:41 | XMS_ITS | Clinical Summary ---
Author Organization 175 [facility] Address [address] [place] [address] Phone Care Team Providers Care Instrumentation Controls Engineer Name Role Phone Linnette Hensley Primary Care Provider [phone] Allergies No known active allergies Medications cyclobenzaprine [...] Relevant to Health Maintenance Insurance YESI SAWYER [id number] [facility] Care Teams Instrumentation Controls Engineer Relationship Specialty Start Date End Date Linnette Hnesley PA [facility] [place] [address] PCP - General 11/08/22
== END 2024-07-15 14:40 | disposition home or self-care (01) ==
LOC: HO.US 14:39
PROVIDERS: PCP Physician Assistant; Visit Provider Nurse Practitioner Family
DX: N20.0 Calculus of kidney (principal)
CPT/HCPCS: 76775

== ENCOUNTER → 2024-07-15 14:40 | Outpatient (BNV) | payer OTHER, SELFPAY | PROVIDERS: PCP Physician Assistant; Visit Provider Radiology Diagnostic Radiology | DX: N20.0 Calculus of kidney (principal); N28.1 Cyst of kidney, acquired | CPT/HCPCS: 76775 ==

== ENCOUNTER 2024-07-17 14:19 | Outpatient (AMB) | payer OTHER, SELFPAY ==
--- NOTE | 2024-07-17 14:43 | MHC.PC.OV ---
Vital Signs 07/17/24 14:45 Height 5 ft 6 in Weight 200 lb 4 oz BMI 32.3 BP 104/70 Blood Pressure Location Lt brachial Position Sitting Respiration 16 Pulse 78 Pulse Source Pulse Oximeter Pulse Oximetry (%) 95 Oxygen Delivery Method Room Air Intake Visit Reasons: dm Intake Note: Diabetes follow up Vocational Education Professional Required: No Allergies No Known Allergies Allergy (Verified 07/17/24 14:44) Medication List - Last Reconciled 07/17/24 by Linnette Hensley PA-C blood-glucose sensor (FreeStyle Kei 3 Sensor device) use daily As directed and replace q 14 days multivitamin 1 tab PO DAILY pantoprazole 40 mg PO DAILY semaglutide (Ozempic) 0.5 mg (0.736 mL) subcut QWEEK simethicone (Gas Relief (simethicone)) 8-0 Tobacco use date assessed: 07/17/24 Dental Screening Dental Screen Date: 10/09/23 HPI dm HPI Details Patient is a 44-year-old male who presents today for a follow up. He recently had gastric sleeve surgery. He has not been seen in a few months and has a significant past medical history of hypertension, hyperlipidemia, type 2 diabetes, peripheral neuropathy, GERD, fatty liver, BALDO on BiPAP, and headaches. General: Currently down 50 lb since his gastric sleeve. Endo: His A1c today in the office is 5.4. Currently off of metformin as he had GI upset. He is on Ozempic 0 0.5 mg. He states he is developing constipation since the surgery and restarting Ozempic. GI: He has fatty liver. Does not follow with GI. He is working on lifestyle modifications. He has been taking stool softeners which intermittently help but recently was very constipated and had a hemorrhoid. He states that he would like a referral to a surgeon because he wants to hemorrhoid removed. He has been using preparation H without improvement. It is tender. Denies any rectal bleeding. -he had a colonoscopy 2 years ago which was negative. Uro: Following with urology. CV: Blood pressure today in the office is 104/70. Still on lisinopril 10 mg. Has had a couple low blood pressures at home. PULM: Follows with Dr. Santo from [facility] sleep medicine for his BALDO. Compliant. [facility]LY [facility] Medical History Left renal stone Peripheral sensory neuropathy due to type 2 diabetes mellitus Needle phobia Uncontrolled type 2 diabetes mellitus with hyperglycemia Fatty liver GERD (gastroesophageal reflux disease) Headache Diabetes mellitus type 2, controlled, without complications Hypercholesteremia HTN (hypertension) Surgical History H/O removal of cyst History of tonsillectomy Family History Mother Afib Hypothyroidism Father Alcoholism Maternal Grandfather Colon cancer Other Substance use Social History Housing: Apartment Patient Tobacco Use Status: Never used Tobacco e-Cigarette/Vaping Use: Never Used Second Hand Smoke Exposure: Yes service: No Current occupational status: employed 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 1. Little interest or pleasure in doing things: not at all 2. Feeling down, depressed, or hopeless: not at all 3. Trouble falling or staying asleep, or sleeping too much: not at all 7. Trouble concentrating on things, such as reading the newspaper or watching television: not at all 8. Moving or speaking so slowly that other people could have noticed. Or the opposite - being so fidgety or restless that you have been moving around a lot more than usual: not at all 9. Thoughts that you would be better off or of hurting yourself in some way: not at all Source: Developed by Drs. Syd Brown, Luh Matta, Swapnil Marsh and colleagues, with an educational ángel from [employer]. Thrive Questionnaire Date Thrive assessed: 04/03/24 I am a: Patient What is your living situation today?: I have a steady place to live Within the past 12 months, did the food you bought not last and you didn't have the money to get more?: Never true Within the past 12 months, did you worry whether your food would run out before you got money to buy more?: Never true Do you have trouble paying for medicines?: No Do you have trouble getting transportation to medical appointments?: No Do you have trouble paying your heating and electricity bill?: No Do you have trouble taking care of your child, family member or friend?: No Do you have trouble with day-to-day activities such as bathing, preparing meals, shopping, managing finances, etc.?: No Are you currently unemployed and looking for a job?: No Are you interested in more education?: No Please select the resources that you would like help with: None Currently or been in a relationship where the following occur: No concerns reported THRIVE Score: 0 AUDIT C Alcohol Use Questionnaire (AUDIT-C) 1. How often do you have a drink containing alcohol?: Never Total Score: 0 EDDIE-7 AMB Questionnaire EDDIE-7 Date EDDIE - 7 assessed: 10/09/23 Feeling nervous, anxious, or on edge: 0 = Not at all Not being able to stop or control worryin = Not at all Worrying too much about different things: 0 = Not at all Trouble relaxin = Not at all Being so restless that it is hard to sit still: 0 = Not at all Becoming easily annoyed or irritable: 0 = Not at all Feeling afraid as if something awful might happen: 0 = Not at all Total EDDIE-7 score (0-4 normal; 5-9 mild; 10-14 moderate; 15-21 severe): 0 Source: Developed by Drs. Syd Brown, Luh Matta, Swapnil Marsh and colleagues, with an educational ángel from [employer]. Physical exam (Primary Care) Vital Signs: Last Vital Signs Pulse 78 07/17/24 14:45 Resp 16 07/17/24 14:45 BP 104/70 07/17/24 14:45 Pulse Ox 95 07/17/24 14:45 Oxygen Delivery Method Room Air 07/17/24 14:45 BMI result Body Mass Index 32.3 Tobacco/Smoking Status: Tobacco use Status Tobacco use date assessed 07/17/24 07/17/24 14:49 Patient Tobacco Use Status Never used Tobacco 07/17/24 14:49 e-Cigarette/Vaping Use Never Used 07/17/24 14:49 Thrive Assessment: Date of Thrive Assessment Date Thrive assessed 04/03/24 07/17/24 14:49 Currently or been in a relationship where the following occur: No concerns reported Const Orientation/consciousness: patient oriented x3 HENMT Ears: hearing grossly normal bilaterally Neck Thyroid: Thyroid normal Lymphatic: no lymphadenopathy noted Resp Auscultation: clear to auscultation bilaterally Cardio Rate: regular rate Rhythm: regular rhythm Heart sounds: S1 normal heart sound present and S2 normal heart sound present GI Inspection: Yes normal to inspection Palpation (GI): Soft to palpation and Other GI palpation findings present (nontender, no cva tenderness) Auscultation: normoactive bowel sounds Rectal Exam - Male: Yes deferred Skin General skin exam: no rashes or lesions noted Neuro General: patient oriented x3, gait normal and no focal motor deficits Results AMB Hemoglobin A1c AMB Hemoglobin A1c 5.4 % Last Edit by Radha Velazco CMA on 07/17/24 14:56 Results Reviewed Results Reviewed: Laboratory Last Values Hgb A1c (Clinic) 5.4 % (4.0-6.0) 07/17/24 14:54 Coding Level of Care Code Est Pt Level 4 (21863) Complex EM visit Add On G2211 Diagnoses Hemorrhoid K64.9 Primary hypertension I10 Hypertension type: primary hypertension Controlled type 2 diabetes mellitus E11.9 Assessment & Plan Assessment & Plan (1) Hemorrhoid: Code(s): K64.9 - Unspecified hemorrhoids Category: Medical Plan: Refused exam. We will try Anusol cream. Referral to Colorectal surgery. Discussed the importance of stool softeners. I will also discontinue the Ozempic given that this is likely contributing to constipation. We will have him follow up in a few months. Sooner if anything changes or worsens. (2) HTN (hypertension): Code(s): I10 - Essential (primary) hypertension Category: Medical Qualifiers: Hypertension type: primary hypertension Qualified Code(s): I10 - Essential (primary) hypertension Plan: We will discontinue the lisinopril given the low blood pressures at home in his weight loss of 50 lb. (3) Controlled type 2 diabetes mellitus: Code(s): E11.9 - Type 2 diabetes mellitus without complications Category: Medical Plan: Discontinue Ozempic. We will try to control blood sugars with diet. He will have a short term follow up. A1c today is 5.4. Patient understands and agrees with this plan. Orders: Orders AMB Hemoglobin A1c Today E11.42 - Type 2 diabetes mellitus with diabetic polyneuropathy Referrals Colon & Rectal Referral K64.9 - Unspecified hemorrhoids Medications: New polyethylene glycol 3350 (Miralax) 17 grams PO BID 238 grams 3RF hydrocortisone 2.5% (Anusol-HC) 1 appl [place] BID-QID PRN 30 grams 2RF itching docusate sodium (Colace) 100 mg PO BID 60 caps 3RF clotrimazole 1% 1 appl topical TID 2 weeks 30 grams 1RF Discontinued lisinopril Discontinued Reason: Doctor's Order 10 mg PO DAILY 90 tabs 1RF semaglutide (Ozempic) for 4 weeks Discontinued Reason: Doctor's Order 0.5 mg (0.736 mL) subcut QWEEK 3 mL 2RF
[2024-07-17 14:45] VITALS: BP 104/70; PULSE 78; RESP 16; O2SAT 95; BMI 32.3
--- OUTSIDE RECORDS SUMMARY | 2024-07-17 15:33 | XMS_ITS | Clinical Summary ---
Author Organization 175 [facility] Address [address] [place] [address] Phone Care Team Providers Care Solvent Recoverer Name Role Phone Linnette Hensley Primary Care Provider [phone] Allergies No known active allergies Medications cyclobenzaprine [...] Relevant to Health Maintenance Insurance YESI SAWYER [id number] [facility] Care Teams Solvent Recoverer Relationship Specialty Start Date End Date Linnette Hensley [place] [facility] [address] PCP - General 11/08/22
== END 2024-07-17 15:28 | disposition home or self-care (01) ==
PROVIDERS: PCP Physician Assistant; Visit Provider Physician Assistant
DX: K64.9 Unspecified hemorrhoids (principal); I10 Essential (primary) hypertension; E11.42 Type 2 diabetes mellitus with diabetic polyneuropathy

== ENCOUNTER → 2024-07-17 14:19 | Outpatient (BNVA) | payer OTHER, SELFPAY | PROVIDERS: PCP Physician Assistant; Visit Provider Physician Assistant | DX: E11.9 Type 2 diabetes mellitus without complications (principal); I10 Essential (primary) hypertension; K64.9 Unspecified hemorrhoids | CPT/HCPCS: 83036 ==

== ENCOUNTER 2024-09-05 15:04 | Outpatient (REF) | payer OTHER, SELFPAY ==
--- NOTE | ~2024-09-05 | US_ITS ---
CLINICAL HISTORY: nephrolithiasis US Urinary Bladder Comparison: None Findings: The urinary bladder is unremarkable. Prevoid volume: 225 mLPostvoid volume: 13 mL Ureteral jets are visualized bilaterally. The prostate measures 3.9 x 3.6 x 3.1 cm. IMPRESSION: Normal urinary bladder This document has been electronically signed by: Noe Sánchez MD on 09/08/2024 09:01:13
--- OUTSIDE RECORDS SUMMARY | 2024-09-05 15:07 | XMS_ITS | Clinical Summary ---
Author Organization 175 [facility] Address [address] [place] [address] Phone Care Team Providers Care Marine Surveyor Name Role Phone Linnette Hensley Primary Care Provider [phone] Allergies No known active allergies Medications cyclobenzaprine [...] BY MOUTH EVERY DAY 30 tablet 2 Active Active Problems Problem Noted Date Diagnosed [...] 04/08/2024 11:48 AM EST Plan of Treatment Upcoming Encounters Date Type Department Care Team (Late st Contact Info) Description 11/25/2024 3:00 PM EDT Office Visit Bariatric Surgery - [place] [facility] [address] [place] [id number] Genia Rushing PA 175 [facility] [place] [address] [place] [id number] Health Maintenance Due Date Last Done Comments Hepatitis B Vaccines (1 of 3 - 19+ 3-dose series) 02/24/2000 Depression Screening 04/25/2022 HIV Screening 04/25/2022 Social Influencers of Health Screening 04/25/2022 COVID-19 Vaccine (1 - 2023-2 5 season) 2024 Hypertension/CHF/CAD Annual BMP Blood Test 08/13/2024 08/14/2023 Influenza Vaccine (Season Ended) 2025 DTaP,Tdap,and Td Vaccines (3 - Td or [...] age to complete this topic Meningococcal B Vaccine Aged Out No l onger eligible based on patient's age to complete [...] Results * Annual BMP Blood Test (08/14/2023) Pathologist [facility] Annual BMP Blood Test Abstracted Historical Provider HEALTH MAINTENANCE Final Result * (ABNORMAL) Lipid panel (08/14/2023) [facility] LDL/HDL Ratio 6(A) 0 - 4 Triglycerides 380(A) 0 - 150 mg/dL Cholesterol 220(A) 0 - 200 mg/dL HDL 40 >=40 mg/dL LDL Cholesterol 104(A) 0 - 100 mg/dL Blood Venous blood specimen / Unknown Historical Provider LAB BLOOD ORDERABLES Lorena l Result * Hepatitis C Screening (10/23/2013) [facility] Hepatitis C Screening Abstracted Historical Provider HEALTH MAINTENANCE Final Result from Last 3 Months or Most Recently Relevant to Health Maintenance Insurance [facility] Care Teams Marine Surveyor Relationship Specialty Start Date End Date Linnette Hensley PA [address] [place] [address] PCP - General 11/08/22
== END 2024-09-05 15:05 | disposition home or self-care (01) ==
LOC: HO.US 15:04
PROVIDERS: PCP Physician Assistant; Visit Provider Nurse Practitioner Family
DX: N20.0 Calculus of kidney (principal)
CPT/HCPCS: 76857

== ENCOUNTER → 2024-09-05 15:15 | Outpatient (BNV) | payer OTHER, SELFPAY | PROVIDERS: PCP Physician Assistant; Visit Provider Specialist | DX: N20.0 Calculus of kidney (principal) | CPT/HCPCS: 76857 ==

== ENCOUNTER 2024-12-31 14:45 | Outpatient (AMB) | payer OTHER, SELFPAY ==
--- NOTE | 2024-12-31 14:47 | A.OFFVIS_ITS ---
Intake Visit Reasons: US follow up(set) Intake Note: Patient is present for US F/U Urology Medication:NONE Antibiotic Allergy:NONE Blood Thinner:NONE Assembler Convertible Top Required: No Allergies No Known Allergies Allergy (Verified 12/31/24 15:20) Medication List - Last Reconciled 12/31/24 by LUDWIG Raman-JACINTO clotrimazole 1% 1 appl topical TID 2 weeks clotrimazole-betamethasone 1-0.05 % 1 appl topical BID 4 weeks docusate sodium (Colace) 100 mg PO BID ergocalciferol (vitamin D2) 1,250 mcg PO QWEEK hydrocortisone 2.5% (Anusol-HC) 1 appl MD BID-QID PRN multivitamin 1 tab PO DAILY pantoprazole 40 mg PO DAILY polyethylene glycol 3350 (Miralax) 17 grams PO BID simethicone (Gas Relief (simethicone)) 8-0 ursodiol 600 mg PO DAILY HPI Comments Details: Kimo is a very pleasant 44-year-old male patient of Dr. Hensley who was accompanied by his significant other at today's office visit. He has a past medical history of nephrolithiasis, type 2 diabetes with peripheral neuropathy, needle phobia, GERD, fatty liver, headaches, hypercholesteremia, and hypertension. He presents to the office today for follow-up of his nephrolithiasis. In discussion with the patient today reports to be doing and feeling well. He denies having had any bothersome urinary issues. He does however report issues with retraction of foreskin to his penis. In assessment of the patient today the penis is uncircumcised upon retraction of penile foreskin it does appear reddened and difficult to retract however I was able to retract it and meatus was visible. We did discussed further treatment options of phimosis and risks and benefits of these treatment options. He reports having followed up with his PCP and was given a cream and has found this somewhat helpful. Recent retroperitoneal ultrasound results reviewed with the patient and his significant other today. 07/22 and 09/19 the urinary bladder is unremarkable. Bilateral kidneys are normal in size and echotexture. No renal calculi or hydronephrosis noted bilaterally. 5 mm peripelvic cyst within the left kidney. We did discussed potential causes of phimosis as well as nephrolithiasis. We discussed further interventions of these urological conditions and risks and benefits of these interventions. In office urinalysis results reviewed with the patient today. He denies urinary urgency, urinary frequency, incontinence, nocturia, hematuria, dysuria, foul smelling urine, changes to urinary stream, flank pain, fever, and or chills. He is happy with her current voiding parameters. He reports feeling ever since he had his gastric sleeve procedure he has had issues with nephrolithiasis and now phimosis. All questions were answered. He otherwise offers no other issues or concerns at this time. [facility] Medical History Left renal stone Peripheral sensory neuropathy due to type 2 diabetes mellitus Needle phobia Uncontrolled type 2 diabetes mellitus with hyperglycemia Fatty liver GERD (gastroesophageal reflux disease) Headache Diabetes mellitus type 2, controlled, without complications Hypercholesteremia HTN (hypertension) Surgical History H/O removal of cyst History of tonsillectomy Family History Mother Afib Hypothyroidism Father Alcoholism Maternal Grandfather Colon cancer Other Substance use Social History Housing: Apartment Patient Tobacco Use Status: Never used Tobacco e-Cigarette/Vaping Use: Never Used Second Hand Smoke Exposure: Yes service: No Current occupational status: employed 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 Current occupational exposures/hazards: No Cognitive needs: No Hearing needs: No Vision needs: No Review of Systems Const All systems reviewed & are unremarkable except as noted in HPI and below Physical Exam Const General: cooperative, healthy appearing, comfortable, no acute distress, well developed, alert and awake Nutritional Appearance: overweight Orientation/consciousness: patient oriented x3 Limitations: no limitations HEENT Head: Yes normal to inspection, Yes normocephalic and Yes atraumatic Ears: hearing grossly normal bilaterally Eyes General: appearance normal, both eyes and all related structures Neck Neck: Yes normal visual inspection and Yes trachea midline Chest Chest palpation & inspection: normal inspection of the chest Resp Effort & Inspection: normal respiratory effort and able to speak in complete sentences Cardio Rate: regular rate GI Inspection: Yes normal to inspection General: Yes no CVA tenderness Male General Exam: Yes normal external exam Penis: normal penis, uncircumcised and phimosis (as per HPI) Meatus: meatus normal Scrotum: scrotum normal Testes: Testes normal Back/Spine/Pelvis Back: no CVA tenderness Skin General skin exam: no rashes or lesions noted Neuro General: patient oriented x3 Extrem General: Yes normal to inspection Psych Appearance: grossly normal and well kempt Mental Status: mental status grossly normal Speech and movement: Normal speech and movement present and Clear speech present Affect: normal affect Attitude: cooperative Thought process: Normal thought process present Thought content: Normal thought content present Insight: Fair insight present (Psych) Judgement: Fair judgement present (Psych) Results AMB Urinalysis, Automated UA Leukoctes 0 Torrie/uL Last Edit by MARIUSZ Bradshaw on 12/31/24 15:20 UA Nitrite Negative Last Edit by Prince Bernal CCM on 12/31/24 15:20 UA Urobilinogen 0.2 mg/dL Last Edit by Prince Bernal CCM on 12/31/24 15:2 0 UA Protein 0 mg/dL Last Edit by Prince Bernal CCM on 12/31/24 15:20 UA pH 6.0 Last Edit by Prince Bernal CCM on 12/31/24 15:20 UA Blood 0 Saul/uL Last Edit by Prince Bernal CCM on 12/31/24 15:20 UA Specific [place] 1.015 Last Edit by Prince Bernal CCM on 12/31/24 15: 20 UA Ketone Negative Last Edit by Prince Bernal CCM on 12/31/24 15:20 UA Bilirubin 0 mg/dL Last Edit by Prince Bernal CCM on 12/31/24 15:20 UA Glucose 0 mg/dL Last Edit by Prince Bernal CCM on 12/31/24 15:20 Results Reviewed Results Reviewed: Laboratory Last Values Urine pH (Auto) 6.0 12/31/24 15:19 Specific [place] (Auto) 1.015 12/31/24 15:19 Urine Protein (Auto) 0 mg/dL 12/31/24 15:19 Glucose (UA)(Auto) 0 mg/dL 12/31/24 15:19 Urine Ketones (Auto) Negative 12/31/24 15:19 Urine Blood (Auto) 0 Saul/uL 12/31/24 15:19 Urine Nitrite (Auto) Negative 12/31/24 15:19 Urine Bilirubin (Auto) 0 mg/dL 12/31/24 15:19 Urine Urobilinogen (Auto) 0.2 mg/dL 12/31/24 15:19 Leukocyte Esterase (Auto) 0 Torrie/uL 12/31/24 15:19 Date of Service: 09/05/24 Procedure(s): US bladder Findings: The urinary bladder is unremarkable. Prevoid volume: 225 mLPostvoid volume: 13 mL Ureteral jets are visualized bilaterally. The prostate measures 3.9 x 3.6 x 3.1 cm. IMPRESSION: Normal urinary bladder Date of Service: 07/15/24 Procedure(s): US renal BI Findings: Right kidney normal size and echotexture, 11.6 cm length. Left kidney normal size and echotexture, 11.8 cm length. No renal calculus. 5 mm peripelvic cyst within the left kidney.. No hydronephrosis of either kidney. Normal color Doppler IMPRESSION: Small left kidney cyst. Otherwise unremarkable. Assessment & Plan Assessment & Plan (1) Phimosis: Code(s): N47.1 - Phimosis Category: Medical (2) Nephrolithiasis: Code(s): N20.0 - Calculus of kidney Category: Medical Plan In office urinalysis results reviewed with the patient today; as noted above. Recent retroperitoneal ultrasound results reviewed with the patient today; as noted above. Start clotrimazole- betamethasone cream as discussed and prescribed. We discussed further treatment options of phimosis and risks and benefits of these treatment options. He currently denies any bothersome urinary issues. He reports be happy with current voiding parameters. We discussed the importance of adequate hydration relation to nephrolithiasis as well as overall health and well-being. Continue adding 1 oz of lemon juice to water daily. Will continue with surveillance monitoring. Follow-up in 1-3 months; or sooner with any issues, concerns, and or questions. Orders: Orders US renal BI 2 Months N20.0 - Calculus of kidney AMB Urinalysis Automated Today Z13.9 - Encounter for screening, unspecified Medications: New clotrimazole-betamethasone 1-0.05 % Apply thin coat 2 times per day 1 appl topical BID 45 grams 0RF 4 weeks N48.1 - Balanitis Discontinued clotrimazole 1% Discontinued Reason: Doctor's Order 1 appl topical TID 2 weeks 30 grams 1RF Patient Instructions: The patient had an opportunity to ask questions regarding the treatment plan. All questions were answered. Physical exam, labs, and imaging were discussed and reviewed in detail. As well as risks, benefits, and discussion of treatment choices. No major barriers to understanding were identified. The patient expressed understanding and agreement with the above treatment plan. The patient was made aware they should contact our office by phone for worsening of their current condition, the appearance of new symptoms, or with any questions or concerns. Compliance is encouraged with any medications and follow up testing that is ordered. It is a privilege to be allowed the opportunity to participate in? your urological care.? Again, if you have any questions or concerns If you have any questions or concerns please do not hesitate to contact me. The office is [phone]. This note is constructed using voice recognition software. While every effort has been made to ensure accuracy cloth dye range operator errors may have been included. Yours sincerely, NELY Raman Coding Level of Care Code Est Pt Level 4 (55403) Diagnoses Phimosis N47.1 Nephrolithiasis N20.0
--- OUTSIDE RECORDS SUMMARY | 2024-12-31 15:12 | XMS_ITS | Clinical Summary ---
Author Organization [address] [facility] Address [address] [place] [address] Phone Care Team Providers Care Laboratory Veterinarian Name Role Phone Linnette Hensley Primary Care Provider [phone] Allergies No known active allergies Medications cyclobenzaprine [...] Active UNABLE TO FIND CPAP HISTORICAL Active ursodioL (ACTIGALL) 300 mg capsule TAKE 2 CAPSULES BY MOUTH DAILY FOR 180 DAYS. 60 capsule 5 5 Active pantoprazole (PROTONIX) 40 mg EC tablet TAKE 1 TABLET BY MOUTH EVERY DAY 30 tablet 2 5 Active ergocalciferol (VITAMIN D-2) 1,250 mcg (50,000 unit) capsule Take 1 capsule (50,000 Units total) by mouth 1 (one) time per week. 4 each 11 5 12/06/19 26 Active zinc gluconate 30 mg tablet Take 1 tablet (30 mg total) by mouth 1 (one) time each day. 30 tablet 2 5 03/05/20 25 Active Active Problems Problem Noted Date Diagnosed Date Morbid obesity with body mas s index (BMI) of 45.0 to 49.9 in adult ([facility] V24, [facility] V28) 11/25/2024 Diarrhea 11/25/2024 Fatigue 11/25/2024 Grade I internal hemorrhoids 11/25/2024 Gross hematuria 11/25/2024 Hepatic steatosis 11/25/2024 Hyperlipidemia 11/25/2024 Impaired fasting glucose 11/25/2024 Kidney stone on left side 11/25/2024 Renal calculi 11/25/2024 BALDO on CPAP 11/25/2024 Morbid obesity ([facility] V24, [facility] V28) 2024 Severe obesity ([facility] V24, [facility] V28) 2024 Sleep disturbance 11/25/2024 Benign hypertension 11/25/2024 Headache, migraine 11/25/2024 Hematuria 01/25/2015 HTN (hypertension) 06/13/2012 Elevated LFTs 02/25/2010 Migraine 01/25/2010 Encounters Date Type Department Care Team Description 11/25/2024 3:00 PM EDT Office Visit Bariatric Surgery - [address] [address] Genia Rushing PA Obesity (BMI 30-39.9) (Primary Dx) from Last 3 Months Immunizations Name Administration Dates Next Due Tdap [...] Sign Reading Time Taken Comments Blood Pressure 129/84 11/25/2024 3:02 PM EDT Pulse 88 11/25/2024 3:02 PM EDT Temperature 36.1 C (97 F) 11/25/2024 3:02 PM EDT Respiratory Rate - - Oxygen Saturation - - Inhaled Oxygen Concentration - - Weight 87.1 kg (192 lb) 11/25/2024 3:02 PM EDT Height 167.6 cm (5' 6 ) 11/25/2024 3:02 PM EDT Body Mass Index 30.99 11/25/2024 3:02 PM EDT Plan of Treatment Upcoming Encounters Date Type Department Care Team (Late st Contact Info) Description 03/31/2025 3:00 PM EST Office Visit Bariatric Surgery - [place] [address] [facility] [address] [place] [id number] Genia Rushing PA [address] [facility] [address] [place] [address] Health Maintenance Due Date Last Done Comments Diabetes: Annual Foot Exam 1991 Diabetes: Annual Retina Eye Exam 1991 Hepatitis B Vaccines (1 of 3 - 19+ 3-dose series) 02/24/2000 Pneumococcal Vaccine: Pediatrics (0 to 5 Years) and At-Risk Patients (6 to 49 Years) (1 of 2 - PCV) 02/24/2000 HIV Screening 04/25/2022 Social Influencers of Health Screening 04/25/2022 COVID-19 Vaccine (3 - 2023-2 5 season) 2024 10/03/2020, 09/12/2020 Depression Screening 05/28/2024 Diabetes: Annual Urine Albumin-Creatinine Ratio (uACR) 11/26/2024 Diabetes: Blood Sugar Contro l Test (HGBA1C) 11/26/2024 08/14/2023 Influenza Vaccine (#1) 2025 Diabetes: Annual GFR (Glomerular Filtration Rate) 11/25/2025 11/25/2024, 08/14/2023 Hypertension/CHF/CAD Annual BMP Blood Test 11/25/2025 11/25/2024, 08/14/2023 DTaP,Tdap,and Td Vaccines (3 - Td or Tdap) 12/11/2026 12/11/2016, 10/23/2013 Cholesterol Screening (Lipid Panel) 08/13/2028 08/14/2023 Hepatitis C Screening Completed 10/23/2013 Hepatitis A Vaccines Aged Out 09/11/2017 No long er eligible based on patient's age to complete this topic HIB Vaccines Aged Out No longer eligi [...] Procedure Name Priority Date/Time Associated Diagnosis Comments VITAMIN B1 Routine 11/25/2024 3:19 PM EDT Obesity (BMI 30-39.9) SELENIUM SERUM Routine 11/25/2024 3:19 PM EDT Obesity (BMI 30-39.9) VITAMIN B12 Routine 11/25/2024 3:19 PM EDT Obesity (BMI 30-39.9) VITAMIN B6 Routine 11/25/2024 3:19 PM EDT Obesity (BMI 30-39.9) VITAMIN D 25 HYDROXY Routine 11/25/2024 3:19 PM EDT Obesity (BMI 30-39.9) ZINC Routine 11/25/2024 3:19 PM EDT Obesity (BMI 30-39.9) IRON AND TIBC Routine 11/25/2024 3:19 PM EDT Obesity (BMI 30-39.9) FOLATE Routine 11/25/2024 3:19 PM EDT Obesity (BMI 30-39.9) COMPREHENSIVE METABOLIC PANEL Routine 11/25/2024 3:19 PM EDT Obesity (BMI 30-39.9) HEMOGLOBIN A1C Routine 08/14/2023 LIPID PANEL Routine 08/14/2023 HEPATITIS C SCREENING Routine 10/23/2013 from Last 3 Months or Most Recently Relevant to Health Maintenance Results * Iron and TIBC (11/25/2024 3:19 PM EDT) Iron 74 50 - 160 mcg/dL LAB CHEMISTRY METHOD 11/25/2024 7:23 PM EDT [facility] TIBC 338 250 - 450 mcg/dL LAB CHEMISTRY METHOD 11/25/2024 7:23 PM EDT [facility] Iron Saturation 22 20 - 50 % LAB CHEMISTRY METHOD 11/25/2024 7:23 PM EDT [facility] Blood Venous blood specimen / Unknown Venipuncture / Unknown 11/25/2024 3:19 PM EDT 11/25/2024 3:19 PM EDT Genia MCKEON LAB BLOOD ORDERABLES Final R esult Performing Organization Address City/[facility]/ZIP Co de Phone Number [facility] [address] [place] [address], [place] [phone] * (ABNORMAL) Zinc (11/25/2024 3:19 PM EDT) Zinc 41(L) 60 - 130 ug/dL 12/01/2024 12:46 PM EDT [facility] Comment: Elevated results may be due to sample collected in a non-certified trace element-free tube. This test was developed and the performance characteristics determined by [facility]. It has not been cleared or approved by the FDA. The laboratory is regulated under CLIA as qualified to perform high-complexity testing. This test is used for patient testing purposes. It should not be regarded as investigational or for research. Test performed at [facility], [address] , [place] [address] Amparo Guzmán MD, PhD - Geotechnical Engineer Blood Venous blood specimen / Unknown Venipuncture / Unknown 11/25/2024 3:19 PM EDT 11/25/2024 3:19 PM EDT Genia MCKEON LAB BLOOD ORDERABLES Final R esult Performing Organization Address City/[facility] Co de Phone Number [facility] [address] [place] [address] * Selenium serum (11/25/2024 3:19 PM EDT) Selenium 116 63 - 160 mcg/L 11/30/2024 1:15 AM EDT [facility] Comment: This test was developed and its analytical performance characteristics have been determined by [facility] [place], [place]. It has not been cleared or approved by the U.S. Food and Drug Administration. This assay has been validated pursuant to the CLIA regulations and is used for clinical purposes. Test Performed by [facility], [facility], [address] [place] [address] Woody Duarte M.D., Ph.D., Director of Laboratories , [place] [id number] Blood Venous blood specimen / Unknown Venipuncture / Unknown 11/25/2024 3:19 PM EDT 11/25/2024 3:19 PM EDT Genia MCKEON LAB BLOOD ORDERABLES Final R esult Performing Organization Address City/[facility]/ZIP Co de Phone Number [facility] [email or web address] [place], [place] [id number] * (ABNORMAL) Vitamin D 25 hydroxy (11/25/2024 3:19 PM EDT) Vit D, 25-Hydroxy 14.8(L) 30.0 - 80.0 ng/mL LAB CHEMISTRY METHOD 11/25/2024 8:28 PM EDT [facility] Blood Venous blood specimen / Unknown Venipuncture / Unknown 11/25/2024 3:19 PM EDT 11/25/2024 3:19 PM EDT Genia MCKEON LAB BLOOD ORDERABLES Final R esult Performing Organization Address City/[facility]/ZIP Co de Phone Number [facility] [address] [place] [address], [place] [phone] * Vitamin B1 (11/25/2024 3:19 PM EDT) Vitamin B1 Whole Blood 96 38 - 122 ug/L 12/02/2024 12:28 PM EDT [facility] Comment: This test was developed and the performance characteristics determined by [facility]. It has not been cleared or approved by the FDA. The laboratory is regulated under CLIA as qualified to perform high-complexity testing. This test is used for patient testing purposes. It should not be regarded as investigational or for research. Test performed at [facility], [address] [email or web address] [address] Amparo Guzmán MD, PhD - Geotechnical Engineer Blood Venous blood specimen / Unknown Venipuncture / Unknown 11/25/2024 3:19 PM EDT 11/25/2024 3:19 PM EDT Genia MCKEON LAB BLOOD ORDERABLES Final R esult Performing Organization Address City/[facility]/ZIP Co de Phone Number [facility] [address] [place] [address] * Vitamin B6 (11/25/2024 3:19 PM EDT) Pathologist [facility] Vitamin B6 (Pyridoxine) Level 38 5 - 50 ug/L 12/02/2024 10:48 AM EDT [facility] Comment: This test was developed and the performance characteristics determined by [facility]. It has not been cleared or approved by the FDA. The laboratory is regulated under CLIA as qualified to perform high-complexity testing. This test is used for patient testing purposes. It should not be regarded as investigational or for research. Test performed at [facility], [address] [place] [address] Amparo Guzmán MD, PhD - Geotechnical Engineer Blood Venous blood specimen / Unknown Venipuncture / Unknown 11/25/2024 3:19 PM EDT 11/25/2024 3:19 PM EDT Genia MCKEON LAB BLOOD ORDERABLES Final R esult Performing Organization Address City/[facility]/ZIP Co de Phone Number [facility] [address] [place] [address] * Folate (11/25/2024 3:19 PM EDT) Pathologist [facility] Folate 14.7 2.8 - 17.0 ng/ml LAB CHEMISTRY METHOD 11/25/2024 7:58 PM EDT [facility] Blood Venous blood specimen / Unknown Venipuncture / Unknown 11/25/2024 3:19 PM EDT 11/25/2024 3:19 PM EDT Genia MCKEON LAB BLOOD ORDERABLES Final R esult Performing Organization Address City/[facility]/ZIP Co de Phone Number [facility] [address] [place] [address], [place] [phone] * Vitamin B12 (11/25/2024 3:19 PM EDT) [facility] Vitamin B-12 329 250 - 900 pcg/mL LAB CHEMISTRY METHOD 11/25/2024 7:58 PM EDT [facility] Blood Venous blood specimen / Unknown Venipuncture / Unknown 11/25/2024 3:19 PM EDT 11/25/2024 3:19 PM EDT Genia MCKEON LAB BLOOD ORDERABLES Final R esult [facility] [address] [place] [address], [place] [phone] * (ABNORMAL) Comprehensive metabolic panel (11/25/2024 3:19 PM EDT) [facility] Sodium 141 133 - 145 mmol/L LAB CHEMISTRY METHOD 11/25/2024 7:58 PM EDT [facility] Potassium 4.2 3.5 - 5.5 mmol/L LAB CHEMISTRY METHOD 11/25/2024 7:58 PM EDT [facility] Chloride 106 96 - 110 mmol/L LAB CHEMISTRY METHOD 11/25/2024 7:58 PM EDT [facility] CO2 29 21 - 32 mmol/L LAB CHEMISTRY METHOD 11/25/2024 7:58 PM EDT [facility] Anion Gap 6 3 - 11 LAB CHEMISTRY METHOD 11/25/2024 7:58 PM EDT [facility] Glucose 58(L) 70 - 100 mg/dL LAB CHEMISTRY METHOD 11/25/2024 7:58 PM [facility] BUN 12 5 - 25 mg/dL LAB CHEMISTRY METHOD 11/25/2024 7:58 PM [facility] Creatinine 0.90 0.70 - 1.30 mg/dL LAB CHEMISTRY METHOD 11/25/2024 7:58 PM [facility] eGFR 109 >=60 mL/min/1. 73m2 LAB CHEMISTRY METHOD 11/25/2024 7:58 PM [facility] Comment:Calculation based on the Chronic Kidney Disease Epidemiology Collaboration (CKD-EPI) equation refit without adjustment for race. BUN/Creatinine Ratio 13.3 LAB CHEMISTRY METHOD 11/25/2024 7:58 PM [facility] Calcium 8.7 8.5 - 10.5 mg/dL LAB CHEMISTRY METHOD 11/25/2024 7:58 PM [facility] AST (SGOT) 17 10 - 42 unit/L LAB CHEMISTRY METHOD 11/25/2024 7:58 PM [facility] ALT (SGPT) 23 10 - 60 unit/L LAB CHEMISTRY METHOD 11/25/2024 7:58 PM [facility] Alkaline Phosphatase 157(H) 42 - 121 unit/L LAB CHEMISTRY METHOD 11/25/2024 7:58 PM [facility] Total Protein 7.3 6.0 - 8.0 g/dL LAB CHEMISTRY METHOD 11/25/2024 7:58 PM [facility] Albumin 3.9 3.2 - 5.0 g/dL LAB CHEMISTRY METHOD 11/25/2024 7:58 PM [facility] Total Bilirubin 0.5 0.0 - 1.4 mg/dL LAB CHEMISTRY METHOD 11/25/2024 7:58 PM [facility] Blood Venous blood specimen / Unknown Venipuncture / Unknown 11/25/2024 3:19 PM EDT 11/25/2024 3:19 PM EDT Genia MCKEON LAB BLOOD ORDERABLES Final R esult [facility] [address] [place] [address], * (ABNORMAL) Hemoglobin A1c (08/14/2023) Pathologist [facility] Hemoglobin A1C 7.1(A) <=6.5 % Blood Venous blood specimen / Unknown Historical Provider LAB BLOOD ORDERABLES Lorena l Result * (ABNORMAL) Lipid panel (08/14/2023) [facility] LDL/HDL Ratio 6(A) 0 - 4 Triglycerides 380(A) 0 - 150 mg/dL Cholesterol 220(A) 0 - 200 mg/dL HDL 40 >=40 mg/dL LDL Cholesterol 104(A) 0 - 100 mg/dL Blood Venous blood specimen / Unknown Historical Provider LAB BLOOD ORDERABLES Lorena l Result * Hepatitis C Screening (10/23/2013) Pathologist [facility] Hepatitis C Screening Abstracted Historical Provider HEALTH MAINTENANCE Final Result from Last 3 Months or Most Recently Relevant to Health Maintenance [facility] [id number] [facility] Care Teams Laboratory Veterinarian Relationship Specialty Start Date End Date Linnette [address] [address] [place] [address] PCP - General 11/08/22
== END 2024-12-31 15:42 | disposition home or self-care (01) ==
LOC: HO.HUSH 14:45
PROVIDERS: PCP Physician Assistant; Visit Provider Nurse Practitioner Family
DX: N47.1 Phimosis (principal); N20.0 Calculus of kidney
CPT/HCPCS: 99214

== ENCOUNTER → 2024-12-31 14:45 | Outpatient (BNVA) | payer OTHER, SELFPAY | PROVIDERS: PCP Physician Assistant; Visit Provider Nurse Practitioner Family | DX: N47.1 Phimosis (principal); N20.0 Calculus of kidney; Z13.9 Encounter for screening, unspecified | CPT/HCPCS: 81003 ==

== ENCOUNTER 2025-03-27 07:50 | Outpatient (AMB) | payer OTHER, SELFPAY ==
--- OUTSIDE RECORDS SUMMARY | 2025-03-27 07:52 | XMS_ITS | Clinical Summary ---
Author Organization 175 [facility] Address [address] [place] [address] Phone Care Team Providers Care Accounting Manager Cpa Name Role Phone Linnette Hensley Primary Care Provider [phone] Allergies No known active allergies Medications cyclobenzaprin e (FLEXERIL) 10 mg tablet Take 1 Tablet by mouth daily. 10/26/19 23 Active gabapentin (NEURONTIN) 300 mg capsule Take 1 Capsule by mouth daily. 10/26/19 23 Active metaxalone (SKELAXIN) 800 mg tablet TAKE 1 TABLET BY MOUTH 3 TIMES A DAY FOR 7 DAYS 10/05/19 23 Active ondansetron (ZOFRAN) 4 mg tablet Take 1-2 Tabs by mouth every 8 hours as needed for Nausea. 01/26/20 15 Active SUMAtriptan (IMITREX) 50 mg tablet TAKE 1 TABLET NEEDED FOR HEADACHE MAY REPEAT DOSE ONCE AFTER 2 HOURS, IF NEEDED. 10/23/19 14 Active traMADoL (ULTRAM) 50 mg tablet TAKE 1 TABLET BY MOUTH EVERY 12 HOURS NEEDED FOR PAIN INS =7D 10/05/19 23 Active FREESTYLE LANCETS MISC USE TO CHECK BLOOD GLUCOSE DAILY DIRECTED FOR TYPE 2 DIABETES MELLITUS 09/28/19 23 Active ibuprofen (ADVIL,MOTRIN) 600 mg tablet Take 1 Tab by mouth every 6 hours as needed for Pain. 08/12/19 14 Active UNABLE TO FIND CPAP HISTORICAL Active ursodioL (ACTIGALL) 300 mg capsule TAKE 2 CAPSULES BY MOUTH DAILY FOR 180 DAYS. 60 capsule 5 09/30/19 25 Active ergocalciferol (VITAMIN D-2) 1,250 mcg (50,000 unit) capsule Take 1 capsule (50,000 Units total) by mouth 1 (one) time per week. 4 each 12/06/19 25 026 Active pantoprazole (PROTONIX) 40 mg EC tablet TAKE 1 TABLET BY MOUTH EVERY DAY 30 tablet 2 01/22/20 25 Active zinc gluconate 30 mg tablet TAKE 1 TABLET BY MOUTH 1 TIME EACH DAY. 30 tablet 2 03/04/20 25 Active zinc gluconate 30 mg tablet Take 1 tablet (30 mg total) by mouth 1 (one) time each day. 30 tablet 2 12/06/19 25 025 Discontinued Active Problems Problem Noted Date Diagnosed Date Morbid obesity with body mas s index (BMI) of 45.0 to 49.9 in adult ([facility] V24, [facility] V28) 11/25/2024 Diarrhea 11/25/2024 Fatigue 11/25/2024 Grade I internal hemorrhoids 11/25/2024 Gross hematuria 11/25/2024 Hepatic steatosis 11/25/2024 Hyperlipidemia 11/25/2024 Impaired fasting glucose 11/25/2024 Kidney stone on left side 11/25/2024 Renal calculi 11/25/2024 BALDO on CPAP 11/25/2024 Morbid obesity ([facility] V24, [facility] V28) 2024 Severe obesity ([facility] V24, [facility] V28) 2024 Sleep disturbance 11/25/2024 Benign hypertension 11/25/2024 Headache, migraine 11/25/2024 Hematuria 01/25/2015 HTN (hypertension) 06/13/2012 Elevated LFTs 02/25/2010 Migraine 01/25/2010 Immunizations Immunization Administration Dates Next Due Tdap Tetanus diptheria [...] PM EST Office Visit Bariatric Surgery - [address] [place] [address] Genia Rushing, LINDA [address] [place] [phone] Health Maintenance Due Date Last Done Comments Diabetes: Annual Foot Exam 1991 Diabetes: Annual Retina Eye Exam 1991 Hepatitis B Vaccines (1 of 3 - 19+ 3-dose series) 02/24/2000 HPV Vaccines (1 - 3-dose SCD M series) 02/24/2008 HIV Screening 04/25/2022 Social Influencers of Health Screening 04/25/2022 Depression Screening 05/28/2024 Diabetes: Annual Urine Albumin-Creatinine Ratio (uACR) 11/26/2024 Diabetes: Blood Sugar Contro l Test (HGBA1C) 11/26/2024 08/14/2023 COVID-19 Vaccine (3 - 2024-2 6 season) 2025 10/03/2020, 09/12/2020 Influenza Vaccine (#1) 2025 Diabetes: Annual GFR (Glomerular Filtration Rate) 11/25/2025 11/25/2024, 08/14/2023 Hypertension/CHF/CAD Annual BMP Blood Test 11/25/2025 11/25/2024, 08/14/2023 DTaP,Tdap,and Td Vaccines (3 - Td or Tdap) 12/11/2026 12/11/2016, 10/23/2013 Cholesterol Screening (Lipid Panel) 08/13/2028 08/14/2023 RSV Immunization Adult Patients (1 - 1-dose 75+ series) 02/24/2056 Hepatitis C Screening Completed 10/23/2013 Hepatitis A [...] and At-Risk Patients (6 to 49 Years) Aged Out No longer eligible b ased on patient's age to complete this topic RSV Immunization Patients Under 20 months Aged Out No longer eligible b ased on patient's age to complete this topic Varicella Vaccines Aged Out No longer eligible based on patient's age to complete this topic Procedures Procedure Name Priority Date/Time Associated Diagnosis Comments COMPREHENSIVE METABOLIC PANEL Routine 11/25/2024 3:19 PM EDT Obesity (BMI 30-39.9) HEMOGLOBIN A1C Routine 08/14/2023 LIPID PANEL Routine 08/14/2023 HM HEPATITIS C SCREENING Routine 10/23/2013 from Last 3 Months or Most Recently Relevant to Health Maintenance Results * (ABNORMAL) Comprehensive metabolic panel (11/25/2024 3:19 PM EDT) Sodium 141 133 - 145 mmol/L LAB CHEMISTRY METHOD 11/25/2024 7:58 PM [facility] Potassium 4.2 3.5 - 5.5 mmol/L LAB CHEMISTRY METHOD 11/25/2024 7:58 PM [facility] Chloride 106 96 - 110 mmol/L LAB CHEMISTRY METHOD 11/25/2024 7:58 PM [facility] CO2 29 21 - 32 mmol/L LAB CHEMISTRY METHOD 11/25/2024 7:58 PM [facility] Anion Gap 6 3 - 11 LAB CHEMISTRY METHOD 11/25/2024 7:58 PM [facility] Glucose 58(L) 70 - 100 mg/dL LAB CHEMISTRY METHOD 11/25/2024 7:58 PM [facility] BUN 12 5 - 25 mg/dL LAB CHEMISTRY METHOD 11/25/2024 7:58 PM [facility] Creatinine 0.90 0.70 - 1.30 mg/dL LAB CHEMISTRY METHOD 11/25/2024 7:58 PM [facility] eGFR 109 >=60 mL/min/1. 73m2 LAB CHEMISTRY METHOD 11/25/2024 7:58 PM [facility] Comment:Calculation based on the Chronic Kidney Disease Epidemiology Collaboration (CKD-EPI) equation refit without adjustment for race. BUN/Creatinine Ratio 13.3 LAB CHEMISTRY METHOD 11/25/2024 7:58 PM [facility] Calcium 8.7 8.5 - 10.5 mg/dL LAB CHEMISTRY METHOD 11/25/2024 7:58 PM [facility] AST (SGOT) 17 10 - 42 unit/L LAB CHEMISTRY METHOD 11/25/2024 7:58 PM EDT [facility] ALT (SGPT) 23 10 - 60 unit/L LAB CHEMISTRY METHOD 11/25/2024 7:58 PM EDT [facility] Alkaline Phosphatase 157(H) 42 - 121 unit/L LAB CHEMISTRY METHOD 11/25/2024 7:58 PM EDT [facility] Total Protein 7.3 6.0 - 8.0 g/dL LAB CHEMISTRY METHOD 11/25/2024 7:58 PM EDT [facility] Albumin 3.9 3.2 - 5.0 g/dL LAB CHEMISTRY METHOD 11/25/2024 7:58 PM EDT [facility] Total Bilirubin 0.5 0.0 - 1.4 mg/dL LAB CHEMISTRY METHOD 11/25/2024 7:58 PM EDT [facility] Blood Venous blood specimen / Unknown Venipuncture / Unknown 11/25/2024 3:19 PM EDT 11/25/2024 3:19 PM EDT Genia MCKEON LAB BLOOD ORDERABLES Final R esult [facility] [address] [place] [address], * (ABNORMAL) Hemoglobin A1c (08/14/2023) Pathologist [facility] Hemoglobin A1C 7.1(A) <=6.5 % Blood Venous blood specimen / Unknown Historical Provider LAB BLOOD ORDERABLES Lorena l Result * (ABNORMAL) Lipid panel (08/14/2023) Pathologist [facility] LDL/HDL Ratio 6(A) 0 - 4 Triglycerides 380(A) 0 - 150 mg/dL Cholesterol 220(A) 0 - 200 mg/dL HDL 40 >=40 mg/dL LDL Cholesterol 104(A) 0 - 100 mg/dL Blood Venous blood specimen / Unknown us Historical Provider LAB BLOOD ORDERABLES Lorena l Result * Hepatitis C Screening (10/23/2013) Hepatitis C Screening Abstracted us Historical Provider HEALTH MAINTENANCE Final Result from Last 3 Months or Most Recently Relevant to Health Maintenance [facility] [place] [place] [id number] [facility] Care Teams Accounting Manager Cpa Relationship Specialty Start Date End Date Linnette Hensley PA [address] [place] [address] PCP - General 11/08/22
--- NOTE | 2025-03-27 08:23 | AM.OFFWIN_ITS ---
Intake Vital Signs 03/27/25 08:31 Height 5 ft 6 in Weight 200 lb BMI 32.3 BP 130/80 Blood Pressure Location Rt brachial Position Sitting Respiration 16 Pulse 91 Pulse Source Pulse Oximeter Temp 98.4 F Temp Source Oral Pulse Oximetry (%) 98 Oxygen Delivery Method Room Air Intake Visit Reasons: ep sick covid positive [phone] Intake Note: Pt is here today c/o bodyaches,fever and nausea: pt tested positive yesterday for COVID home test. Patient Tobacco Use Status: Never used Tobacco Allergies No Known Allergies Allergy (Verified 03/27/25 08:24) HPI HPI Comments History of Present Illness Details History - The patient is a 45-year-old male pres enting with symptoms of an upper respiratory infection. - Symptoms began three days ago, includi ng body aches, nasal congestion, cough, and intermittent fever. - The patient reports dyspnea but denies any history of asthma or COPD. - Jmmu-ult-yfkervy medications used incl ude Demetrice-Pinch Cold and Flu and Advil for body aches. - The patient is s/p sleeve gastrectomy procedure. Review of Systems - General: Reports body aches and interm ittent fever for three days. - Respiratory: Reports dyspnea and cough . Denies wheezing or hemoptysis. - Cardiovascular: Denies chest pain or p alpitations. All systems reviewed and are unremarkable except as noted in HPI Physical Exam General: Cooperative, healthy appearing, comfortable and no acute distress Orientation/consciousness: Patient oriented x3 Limitations: No limitations Head: Normal to inspection Ears: Hearing grossly normal bilaterally, external ears normal, EAC's normal bilaterally and TM's normal bilaterally Nose: Normal external nose present, Normal nares present and No nasal discharge present Face and sinus: Normal facial exam and sinuses nontender Mouth: Normal oral and palatal mucosa present and moist mucous membranes Throat: Tonsils normal, no exudates, uvula midline, posterior oropharynx erythema noted Eyes: Appearance normal, both eyes and all related structures Neck: Normal visual inspection, full ROM Respiratory: rhonchi in JACQUELINE. Normal respiratory effort, able to speak in complete sentences, actively coughing, no respiratory distress, not tachypneic, no tripod positioning and no use of accessory muscles. Abnormal sounds noted in the left upper lobe, possibly indicating congestion. Cardiovascular: Regular rate and rhythm. Normal S1 and S2 Skin: No rashes or lesions noted Neuro: Patient oriented x3 Extremities: Normal to inspection and Yes no clubbing, cyanosis or edema PFSH Medical History Left renal stone Peripheral sensory neuropathy due to type 2 diabetes mellitus Needle phobia Uncontrolled type 2 diabetes mellitus with hyperglycemia Fatty liver GERD (gastroesophageal reflux disease) Headache Diabetes mellitus type 2, controlled, without complications Hypercholesteremia HTN (hypertension) Surgical History H/O removal of cyst History of tonsillectomy Family History Mother Afib Hypothyroidism Father Alcoholism Maternal Grandfather Colon cancer Other Substance use Social History (Reviewed 06/04/24 @ 15:02 by Cadence Marte, [facility]) Housing: Apartment Patient Tobacco Use Status: Never used Tobacco e-Cigarette/Vaping Use: Never Used Second Hand Smoke Exposure: Yes service: No Current occupational status: employed 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 - VSS, pt well appearing and PE remarkable for JACQUELINE rhonchi - A chest x-ray was ordered to rule out pneumonia due to rhonchi sounds in the left upper lobe. - Prescription for an inhaler to manage dyspnea was provided. - Tessalon Perles were prescribed to manage cough, with instructions to use at bedtime. - Patient advised to rest and hydrate. - Can use OTC meds to treat symptoms - Sent Paxlovid Orders: Orders XR chest 2V Today R05.9 - Cough, unspecified Medications: New nirmatrelvir-ritonavir 300 mg (150 mg x 2)-100 mg (Paxlovid) take TWO 150 mg t ablets of nirmatrelvir with ONE 100 mg tablet of ritonavir twice daily for 5 days PO 30 ea 0RF albuterol sulfate 90 mcg/actuation 2 puffs inhalation Q6H PRN 8.5 grams 0RF s hortness of breath or wheezing or cough benzonatate 200 mg PO BEDTIME PRN 10 caps 0RF cough Coding Level of Care Code Est Pt Level 4 (54061) Diagnoses COVID-19 U07.1
[2025-03-27 08:31] VITALS: BP 130/80; PULSE 91; RESP 16; TEMP 36.9; O2SAT 98; BMI 32.3
== END 2025-03-27 08:57 | disposition home or self-care (01) ==
PROVIDERS: PCP Physician Assistant; Visit Provider Physician Assistant
DX: U07.1 COVID-19 (principal)

== ENCOUNTER 2025-03-27 07:50 | Outpatient (REF) | payer OTHER, SELFPAY ==
--- NOTE | ~2025-03-27 | XR_ITS ---
EXAMINATION: XR CHEST CLINICAL INFORMATION: R05.9 - Cough, unspecified COMPARISON: None available. TECHNIQUE: PA and lateral views FINDINGS: Pulmonary reticular pattern. No hyperinflation. No consolidation, pleural effusion or pneumothorax. Cardiomediastinal silhouette size is normal. Mild multilevel spondylosis. XR/XR chest 2V IMPRESSION: Concerning chronic interstitial lung disease without overt acute airspace disease. Electronically signed by: Jason Stern MD 03/27/2025 09:04 AM EDT
== END 2025-03-27 07:51 | disposition home or self-care (01) ==
LOC: HO.HMGCX 07:50
PROVIDERS: PCP Physician Assistant; Visit Provider Physician Assistant
DX: U07.1 COVID-19 (principal); R50.9 Fever, unspecified; R09.81 Nasal congestion; R52 Pain, unspecified; R05.9 Cough, unspecified; Z77.22 Contact with and (suspected) exposure to environmental tobacco smoke (acute) (chronic)
CPT/HCPCS: 71046

== ENCOUNTER → 2025-03-27 08:53 | Outpatient (BNV) | payer OTHER, SELFPAY | PROVIDERS: PCP Physician Assistant; Visit Provider Radiology Diagnostic Radiology | DX: R05.9 Cough, unspecified (principal) | CPT/HCPCS: 71046 ==

== ENCOUNTER 2025-03-30 12:03 | Outpatient (AMB) | payer OTHER, SELFPAY ==
--- NOTE | 2025-03-30 11:56 | MHC.PC.OV ---
Intake Visit Reasons: xray results Intake Note: Go over xray results. Allergies No Known Allergies Allergy (Verified 03/30/25 11:57) Tobacco use date assessed: 03/30/25 Dental Screening Dental Screen Date: 10/09/23 Did you have a dental visit in the last 12 months?: Yes Did you have a dental problem in the last 6 months where you did not have access to dental care?: No Was dental information given to patient?: Patient has dentist HPI HPI Comments History of Present Illness Details 45 year old male presenting for follow up COVID 19/abnormal xray. Patient was [place] [facility] [place] care on 03/25 with reports of +COVID 19 testing and symptoms of body aches, nasal congestion, cough, and intermittent fever. He was treated with paxlovid CXR was completed for cc cough and was read as FINDINGS: Pulmonary reticular pattern. No hyperinflation. No consolidation, pleural effusion or pneumothorax. Cardiomediastinal silhouette size is normal. Mild multilevel spondylosis. XR/XR chest 2V IMPRESSION: Concerning chronic interstitial lung disease without overt acute airspace disease. Patient tells me had normal chest xray in 2022. He is exposed to chemicals at work. He has no dyspnea, cough at baseline. Feeling much better following Paxlovid. Discussed these xray findings could be secondary to acute covid infection. We will plan to repeat in 3-4 weeks and plan for pulmonary referral at that time if abnormalities remain [facility] Medical History Left renal stone Peripheral sensory neuropathy due to type 2 diabetes mellitus Needle phobia Uncontrolled type 2 diabetes mellitus with hyperglycemia Fatty liver GERD (gastroesophageal reflux disease) Headache Diabetes mellitus type 2, controlled, without complications Hypercholesteremia HTN (hypertension) Surgical History H/O removal of cyst History of tonsillectomy Family History Mother Afib Hypothyroidism Father Alcoholism Maternal Grandfather Colon cancer Other Substance use Social History Housing: Apartment Patient Tobacco Use Status: Never used Tobacco e-Cigarette/Vaping Use: Never Used Second Hand Smoke Exposure: Yes service: No Current occupational status: employed 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 How often do you have a drink containing alcohol?: Never 3. How often do you have six or more drinks on one occasion?: Never Total Score: 0 EDDIE-7 AMB Questionnaire EDDIE-7 Date EDDIE - 7 assessed: 10/09/23 Source: Developed by Drs. Syd Brown, Luh Matta, Swapnil Marsh and colleagues, with an educational ángel from [employer]. Physical exam (Primary Care) Tobacco/Smoking Status: Tobacco use Status Tobacco use date assessed 03/30/25 03/30/25 11:59 Patient Tobacco Use Status Never used Tobacco 03/30/25 11:59 e-Cigarette/Vaping Use Never Used 03/30/25 11:59 Thrive Assessment: Date of Thrive Assessment Date Thrive assessed 07/17/24 03/30/25 11:59 Telehealth Telehealth Telehealth Platform: Telephone Location of provider rendering services: practice address Location of patient: address on file Patient Identification confirmed using: Name, : Yes Telehealth method: voice only Patient verbally consented to treatment: Yes Patient verbally consented to billing insurance company: Yes Patient informed of any privacy concerns related to visit: Yes Minutes spent on Phone/Video with Pt.: 21 Coding Level of Care Code Tele Est Pt Level 3 (02095) Diagnoses COVID-19 U07.1 Abnormal x-ray R93.89 Assessment & Plan Assessment & Plan (1) COVID-19: Code(s): U07.1 - COVID-19 (2) Abnormal x-ray: Code(s): R93.89 - Abnormal findings on diagnostic imaging of other specified body structures Plan See HPI Plan for repeat xray 3-4 weeks Pulmonary referral if still abnormal Acute COVID symptoms resolved Orders: Orders XR chest 2V 2 Weeks R93.89 - Abnormal findings on diagnostic imaging of other specified body structures, U07.1 - COVID-19
--- OUTSIDE RECORDS SUMMARY | 2025-03-30 15:16 | XMS_ITS | Clinical Summary ---
Author Organization 175 [facility] Address [address] [place] [address] Phone Care Team Providers Care Cigar Tobacco Rehandler Name Role Phone Linnette Hensley Primary Care Provider [phone] Allergies No known active allergies Medications cyclobenzaprin [...] (BMI) of 45.0 to 49.9 in adult ([facility] V24, [facility] V28) 11/25/2024 Diarrhea 11/25/2024 Fatigue 11/25/2024 Grade I internal hemorrhoids 11/25/2024 Gross hematuria 11/25/2024 Hepatic steatosis 11/25/2024 Hyperlipidemia 11/25/2024 Impaired fasting glucose 11/25/2024 Kidney stone on left side 11/25/2024 Renal calculi 11/25/2024 BALDO on CPAP 11/25/2024 Morbid obesity ([facility] V24, [facility] V28) 2024 Severe obesity ([facility] V24, [facility] V28) 2024 Sleep disturbance 11/25/2024 Benign [...] PM EST Office Visit Bariatric Surgery - [address] [place] [address] Genia Rushing, LINDA [address] [place] [phone] Health Maintenance Due Date Last Done [...] mmol/L LAB CHEMISTRY METHOD 11/25/2024 7:58 PM [facility] Potassium 4.2 3.5 - 5.5 mmol/L LAB CHEMISTRY METHOD 11/25/2024 7:58 PM [facility] Chloride 106 96 - 110 mmol/L LAB CHEMISTRY METHOD 11/25/2024 7:58 PM [facility] CO2 29 21 - 32 mmol/L LAB CHEMISTRY METHOD 11/25/2024 7:58 PM [facility] Anion Gap 6 3 - 11 LAB CHEMISTRY METHOD 11/25/2024 7:58 PM [facility] Glucose 58(L) 70 - 100 mg/dL LAB CHEMISTRY METHOD 11/25/2024 7:58 PM [facility] BUN 12 5 - 25 mg/dL LAB CHEMISTRY METHOD 11/25/2024 7:58 PM [facility] Creatinine 0.90 0.70 - 1.30 mg/dL LAB CHEMISTRY METHOD 11/25/2024 7:58 PM [facility] eGFR 109 >=60 mL/min/1. 73m2 LAB CHEMISTRY METHOD 11/25/2024 7:58 PM [facility] Comment:Calculation based on the Chronic Kidney Disease Epidemiology Collaboration (CKD-EPI) equation refit without adjustment for race. BUN/Creatinine Ratio 13.3 LAB CHEMISTRY METHOD 11/25/2024 7:58 PM [facility] Calcium 8.7 8.5 - 10.5 mg/dL LAB CHEMISTRY METHOD 11/25/2024 7:58 PM [facility] AST (SGOT) 17 10 - 42 unit/L LAB CHEMISTRY METHOD 11/25/2024 7:58 PM EDT [facility] ALT (SGPT) 23 10 - 60 unit/L LAB CHEMISTRY METHOD 11/25/2024 7:58 PM EDT [facility] Alkaline Phosphatase 157(H) 42 - 121 unit/L LAB CHEMISTRY METHOD 11/25/2024 7:58 PM EDT [facility] Total Protein 7.3 6.0 - 8.0 g/dL LAB CHEMISTRY METHOD 11/25/2024 7:58 PM EDT [facility] Albumin 3.9 3.2 - 5.0 g/dL LAB CHEMISTRY METHOD 11/25/2024 7:58 PM EDT [facility] Total Bilirubin 0.5 0.0 - 1.4 mg/dL LAB CHEMISTRY METHOD 11/25/2024 7:58 PM EDT [facility] Blood Venous blood specimen / Unknown Venipuncture / Unknown 11/25/2024 3:19 PM EDT 11/25/2024 3:19 PM EDT Genia MCKEON LAB BLOOD ORDERABLES Final R esult [facility] [address] [place] [address], * (ABNORMAL) Hemoglobin A1c (08/14/2023) Pathologist [facility] Hemoglobin A1C 7.1(A) <=6.5 % Blood Venous blood specimen / Unknown Historical Provider LAB BLOOD ORDERABLES Lorena l Result * (ABNORMAL) Lipid panel (08/14/2023) Pathologist [facility] LDL/HDL Ratio 6(A) 0 - 4 Triglycerides [...] Recently Relevant to Health Maintenance [facility] [place] [id number] [facility] Care Teams Cigar Tobacco Rehandler Relationship Specialty Start Date End Date Linnette Hensley PA [address] [place] [address] PCP - General 11/08/22
== END 2025-03-30 13:33 | disposition home or self-care (01) ==
LOC: HO.HMCFM 12:03
PROVIDERS: PCP Physician Assistant; Visit Provider Internal Medicine
DX: R93.89 Abnormal findings on diagnostic imaging of other specified body structures (principal); Z86.16 Personal history of COVID-19

== ENCOUNTER 2025-04-20 15:00 | Outpatient (REF) | payer OTHER, SELFPAY ==
--- NOTE | ~2025-04-20 | XR_ITS ---
EXAMINATION: XR CHEST 2 VIEWS HISTORY: R93.89 - Abnormal findings on diagnostic imaging of other specified body... COMPARISON: Comparison is made with the prior examination dated 03/27/2025. FINDINGS: PA and lateral views of the chest are submitted. The lungs are expanded and clear. There is no pleural effusion, pneumothorax, or pulmonary vascular congestion. The heart is normal in size. The bones are intact. XR/XR chest 2V IMPRESSION: No acute cardiopulmonary abnormality. Electronically signed by: Syd Michael MD 04/20/2025 03:47 PM EST
--- OUTSIDE RECORDS SUMMARY | 2025-04-20 19:49 | XMS_ITS | Clinical Summary ---
Author Organization [address] [facility] Address [address] [place] [address] Phone Care Team Providers Care Property Assistant Name Role Phone Linnette Hensley Primary Care Provider [phone] Allergies No known active allergies Medications cyclobenzaprine [...] every 6 hours as needed for Pain. 03/17/201 4 Active UNABLE TO FIND CPAP HISTORICAL Active ursodioL (ACTIGALL) 300 mg capsule TAKE 2 CAPSULES BY MOUTH DAILY FOR 180 DAYS. 60 capsule 5 5 Active ergocalciferol (VITAMIN D-2) 1,250 mcg (50,000 unit) capsule Take 1 capsule (50,000 Units total) by mouth 1 (one) time per week. 4 each 11 5 12/06/19 26 Active pantoprazole (PROTONIX) 40 mg EC tablet TAKE 1 TABLET BY MOUTH EVERY DAY 30 tablet 2 5 Active zinc gluconate 30 mg tablet TAKE 1 TABLET BY MOUTH 1 TIME EACH DAY. 30 tablet 2 5 Active semaglutide (OZEMPIC) 0.25 mg or 0.5 mg (2 mg/3 mL) injection penIndications:C lass 1 obesity due to excess calories with serious comorbidity and body mass index (BMI) of 33.0 to 33.9 in adult,Bariatric surgery status Inject 0.25 mg under the skin every 7 (seven) days. 3 mL 5 Active Active Problems Problem Noted Date Diagnosed Date Diarrhea 11/25/2024 Fatigue 11/25/2024 Grade I internal hemorrhoids 11/25/2024 Gross hematuria 11/25/2024 Hepatic steatosis 11/25/2024 Hyperlipidemia 11/25/2024 Impaired fasting glucose 11/25/2024 Kidney stone on left side 11/25/2024 Renal calculi 11/25/2024 BALDO on CPAP 11/25/2024 Sleep disturbance 11/25/2024 Benign hypertension 11/25/2024 Headache, migraine 11/25/2024 Hematuria 01/25/2015 HTN (hypertension) 06/13/2012 Elevated LFTs 02/25/2010 Migraine 01/25/2010 Resolved Problems Problem Noted Date Diagnosed Date Resolved Date Morbid obesity with body mas s index (BMI) of 45.0 to 49.9 in adult (CMS/HCC V24, CMS/[facility] V28) 11/25/2024 03/31/2025 Morbid obesity (CMS/HCC V24, CMS/[facility] V28) 11/25/2024 03/31/2025 Severe obesity (CMS/HCC V24, CMS/[facility] V28) 11/25/2024 03/31/2025 Encounters Date Type Department Care Team Description 03/31/2025 3:00 PM EST Office Visit Bariatric Surgery - [address] [place] [address] Genia Rushing PA Class 1 obesity due to excess calories with serious comorbidity and body mass index (BMI) of 33.0 to 33.9 in adult (Primary Dx); Bariatric surgery status from Last 3 Months Immunizations Immunization Administration Dates Next Due Tdap Tetanus diptheria acell ular pertussis (Boostrix; Adacel) 7yo and older 12/11/2016,10/23/2013 Surgical History Surgery Date Site/Laterality Comments TONSILLECTOMY PROCEDURE: HISTORICAL TONSILLECTOMY; COMMENT: 1999 Medical History Medical History Date Comments Sleep apnea DX:Sleep apnea; COMMENT: mild Morbid obesity with body mas s index (BMI) of 45.0 to 49.9 in adult ([facility] V24, [facility] V28) 11/25/2024 Severe obesity ([facility] V24, [facility] V28) 2024 Morbid obesity ([facility] V24, [facility] V28) 2024 Family History Medical History Relation Name Comments [...] Sign Reading Time Taken Comments Blood Pressure 155/100 03/31/2025 2:46 PM EST Pulse 86 03/31/2025 2:46 PM EST Temperature 36.1 C (97 F) 11/25/2024 3:02 PM EDT Respiratory Rate - - Oxygen Saturation - - Inhaled Oxygen Concentration - - Weight 93.6 kg (206 lb 6.4 oz) 03/31/2025 2:46 P M EST Height 167.6 cm (5' 6 ) 03/31/2025 2:46 PM EST Body Mass Index 33.31 03/31/2025 2:46 PM EST Plan of Treatment Upcoming Encounters Date Type Department Care Team (Late st Contact Info) Description 09/02/2025 4:00 PM EDT Office Visit Bariatric Surgery - [place] [address] [place] [address] Genia Rushing PA [facility] [place] [address] Health Maintenance Due Date Last Done [...] mmol/L LAB CHEMISTRY METHOD 11/25/2024 7:58 PM T [facility] Chloride 106 96 - 110 [...] unit/L LAB CHEMISTRY METHOD 11/25/2024 7:58 PM [facility] ALT (SGPT) 23 10 - 60 unit/L LAB CHEMISTRY METHOD 11/25/2024 7:58 PM [facility] Alkaline Phosphatase 157(H) 42 - 121 unit/L LAB CHEMISTRY METHOD 11/25/2024 7:58 PM [facility] Total Protein 7.3 6.0 - 8.0 g/dL LAB CHEMISTRY METHOD 11/25/2024 7:58 PM [facility] Albumin 3.9 3.2 - 5.0 g/dL LAB CHEMISTRY METHOD 11/25/2024 7:58 PM [facility] Total Bilirubin 0.5 0.0 - 1.4 mg/dL LAB CHEMISTRY METHOD 11/25/2024 7:58 PM [facility] Blood Venous blood specimen / Unknown Venipuncture / Unknown 11/25/2024 3:19 PM EDT 11/25/2024 3:19 PM EDT Genia MCKEON LAB BLOOD ORDERABLES Final R esult [facility]) [facility] [address] [place] [address], * (ABNORMAL) Hemoglobin A1c (08/14/2023) Pathologist [facility] Hemoglobin A1C 7.1(A) <=6.5 % Blood Venous blood specimen / Unknown Historical Provider LAB BLOOD ORDERABLES Lorena l Result * (ABNORMAL) Lipid panel (08/14/2023) [facility] LDL/HDL Ratio 6(A) 0 - 4 Triglycerides 380(A) 0 - 150 mg/dL Cholesterol 220(A) 0 - 200 mg/dL HDL 40 >=40 mg/dL LDL Cholesterol 104(A) 0 - 100 mg/dL Blood Venous blood specimen / Unknown Historical Provider LAB BLOOD ORDERABLES Lorena l Result * Hepatitis C Screening (10/23/2013) [facility] Hepatitis C Screening Abstracted Historical Provider HEALTH MAINTENANCE Final Result from Last 3 Months or Most Recently Relevant to Health Maintenance Insurance HALIEYESI DAWSON [id number] [facility] Care Teams Property Assistant Relationship Specialty Start Date End Date Hensley, Linnette, PA [facility] [place] [address] PCP - General 11/08/22
== END 2025-04-20 15:01 | disposition home or self-care (01) ==
LOC: HO.XRAY 15:00
PROVIDERS: PCP Physician Assistant; Visit Provider Internal Medicine
DX: U07.1 COVID-19 (principal); R93.89 Abnormal findings on diagnostic imaging of other specified body structures
CPT/HCPCS: 71046

== ENCOUNTER → 2025-04-20 15:06 | Outpatient (BNV) | payer OTHER, SELFPAY | PROVIDERS: PCP Physician Assistant; Visit Provider Radiology Diagnostic Radiology | DX: R93.89 Abnormal findings on diagnostic imaging of other specified body structures (principal) | CPT/HCPCS: 71046 ==